=== PATIENT | male | born 2000 | race African-American/Black ===

== ENCOUNTER 2022-12-14 06:41 | Inpatient (IN) | payer MEDICAID, OTHER ==
[2022-12-14] VITALS (11 sets, daily range): BP systolic 132–204; BP diastolic 77–114
[~2022-12-14] VITALS: Ht 172.7 cm; Wt 58.1 kg
--- NOTE | 2022-12-14 06:50 | NUR ---
[id number] FROM SNF FOR HR 130-140'S AND HOT TO TOUCH. PATIENT RECENTLY HAD A TBI IN OCTOBER AND IS NON VERBAL. PTS RECTAL TEMP WAS 101.1, MD NOTIFIED. PATIENT PLACED IN BED 09 ON MONITOR AND POX. PATIENT IS CONNECTED TO O2 3L CONNECTED TO TPIECE.
--- NOTE | 2022-12-14 06:53 | NUR ---
AT BEDSIDE FOR PATIENT EVAL.
[2022-12-14] MEDS ORDERED: VANCOMYCIN 1 GM in IV D5W 250 ML IV ONE ×2 (07:00→11:00)
[2022-12-14] MEDS ORDERED: PIPERACILLIN /TAZOBACTAM 2.25 G in IV D5W 50 ML IV ONE (07:00)
[2022-12-14] MEDS ORDERED: IV NS 0.9% 1,000 ML BAG IV ONE ×2 (07:00→11:00)
--- NOTE | 2022-12-14 07:00 | NUR ---
PATIENT PLACED IN BED. CAME WITH TRACHE ATTACHED TO OXYGEN AT 2LPM, WITH GTUBE FOR MEDS AND FEEDING, WITH SUPRAPUBIC CATHETER DRAINING TO YELLOW COLORED URINE, WITH CONDOM CATH ATTACHED TO UROBAG. PT IS AOX0. ATTACHED TO MONITOR. VITALS CHECKED.
--- NOTE | 2022-12-14 07:06 | NUR ---
URINE COLLECTED SENT TO LAB
--- NOTE | 2022-12-14 07:12 | NUR ---
BLOOD AND CULTURES COLLECTED AND SENT TO LAB
--- NOTE | 2022-12-14 07:13 | NUR ---
COVID SWAB DONE AND SENT TO LAB
--- NOTE | 2022-12-14 07:13 | NUR ---
BS 98 NOTIFIED
[2022-12-14] MEDS ORDERED: ACETAMINOPHEN 650 MG/SUPP.RECT RC ONE ×2 (07:22→07:30)
--- NOTE | 2022-12-14 07:30 | NUR ---
IV CHARLI G20 INSERTED ON LEFT FA.
[2022-12-14 07:39] LABS: BILIRUBIN,URINE NEGATIVE (NEGATIVE); COLOR,URINE DARK YELLOW (YELLOW); LEUKOCYTE ESTERASE ,URINE NEGATIVE (NEGATIVE); NITRITE, URINE NEGATIVE (NEGATIVE); PH,URINE 7.5 (5.0-8.0); PROTEIN,URINE TRACE mg/dl (NEGATIVE); UGLUCOSE NEGATIVE (NEGATIVE)
[2022-12-14 07:42] LABS: BASOPHILS # (AUTO) 0.1 K/uL (0.0-0.2); BASOPHILS % (AUTO) 0.5 % (0.0-2.0); EOSINOPHILS % (AUTO) 2.2 % (0.0-6.0); HEMATOCRIT 35 % (39-51); HEMOGLOBIN 11.2 g/dL (13.5-17.5); LYMPHOCYTES # (AUTO) 1.5 K/uL (0.8-4.8); LYMPHOCYTES % (AUTO) 12.6 % (20.0-44.0); MEAN CORPUSCULAR HGB CONC 32 g/dl (31.0-36.0); MEAN CORPUSCULAR VOLUME 89 fL (80-96); MONOCYTES # (AUTO) 0.5 K/uL (0.1-1.30); NEUTROPHILS # (AUTO) 9.9 K/uL (1.8-8.9); NEUTROPHILS % (AUTO) 80.7 % (43.0-81.0); PLATELET COUNT (AUTO) 501 K/uL (150-450); RED BLOOD CELL COUNT(AUTO) 3.95 MIL/uL (4.5-6.0); WHITE BLOOD COUNT (AUTO) 12.3 K/uL (4.3-11.0)
--- NOTE | 2022-12-14 07:45 | NUR ---
IV fluids started no infiltration noted
[2022-12-14 07:46] LABS: CALCIUM, SERUM 11.3 mg/dL (8.5-10.1); CARBON DIOXIDE 30 mmol/L (21-32); CHLORIDE 99 mmol/L (98-107); CREATININE 0.8 mg/dL (0.6-1.3); GLUCOSE 116 mg/dL (74-106); SODIUM SERUM 138 mmol/L (136-145); UREA NITROGEN, BLOOD 20 mg/dL (7-18)
[2022-12-14 07:51] LABS: ALANINE AMINOTRANSFERASE 25 U/L (12-78); ALBUMIN 3.7 g/dL (3.4-5.0); ALKALINE PHOSPHATASE 303 U/L (46-116); ASPARTATE AMINOTRANSFERASE 31 U/L (15-37); BILIRUBIN,DIRECT 0.1 mg/dL (0.0-0.2); BILIRUBIN,TOTAL 0.3 mg/dL (0.2-1.0); TOTAL PROTEIN, SERUM 10.3 g/dL (6.4-8.2)
--- NOTE | 2022-12-14 08:42 | NUR ---
IV antibiotics hung
[2022-12-14] MEDS ORDERED: IV NS 0.9% 1,000 ML IV ONE (09:00)
--- NOTE | 2022-12-14 09:08 | NUR ---
MOVE SHEET SUBMITTED.
[2022-12-14] MEDS ORDERED: ONDANSETRON HCL/PF 4 MG/2 ML VIAL IVP PRN (11:00)
[2022-12-14] MEDS ORDERED: LORAZEPAM INJ 2 MG/ML VIAL IV ONE ×2 (11:00→13:00)
[2022-12-14] MEDS ORDERED: LORAZEPAM INJ 2 MG/ML VIAL ONE ×2 (11:16→12:36)
[2022-12-14 11:25] LABS: ALBUMIN 3.4 g/dL (3.4-5.0); BILIRUBIN,DIRECT 0.1 mg/dL (0.0-0.2); BILIRUBIN,TOTAL 0.4 mg/dL (0.2-1.0); TOTAL PROTEIN, SERUM 9.3 g/dL (6.4-8.2)
[2022-12-14 11:26] LABS: ABG BASE EXCESS -1.4 mmol/L; ABG OXYGEN SATURATION 98.6 % (92.0-98.5); ABG PCO2 35.7 mmHg (35.0-45.0); AaDO2 48.4 mmHg; COHb 0.3 % (0.5-1.5); MetHb 0.3 % (0.0-1.5); SITE, ABG Left Radial
--- NOTE | 2022-12-14 12:48 | NUR ---
GOT BED 112 TELE
--- NOTE | 2022-12-14 12:52 | NUR ---
Report given to Lois POLLOCK
[2022-12-14] MEDS: PIPERACILLIN /TAZOBACTAM 4.5 G in IV D5W 100 ML IV SCH ×3 (14:05→23:52)
--- NOTE | 2022-12-14 14:10 | NUR ---
MEAT BLENDER NOTE PATIENT WAS ADMITTED FROM THE ER , WITH PRIMARY DIAGNOSIS OF SEPSIS , WITH RECENT HISTORY OF TRAUMATIC BRAIN INJURY AND SUBDURAL HEMATOMA .PATIENT IS NONVERBAL , BOTH WRISTS CONTRACTED HAS IV ACCESS OF THE LEFT WRIST .UPON ADMISSION BP WAS 160 /80 , HR 150 , REPORT WAS GIVEN TO THE DR REEVES .PATIENT IS DIAPHORETIC , TEMP ON ADMISSION 98.8 . PATIENT HAS G TUBE IN PLACE WILL VERIFY WITH THE [facility] WHAT FORMULA PATIENT WAS RECEIVING FOR G TUBE FEEDING , ALSO SUPRAPUBIC CATHETER IN PLACE AND CONDOM CATHETER WELL PER ER REPORT CONDOM CATHETER WAS PLACED BECAUSE OF URINE LEAKING , BED IS AT LOWEST POSITIOM , BED SIDE RAILS ARE UP WILL CONTINUE TO MONITOR
[2022-12-14] MEDS ORDERED: CEPH500C2 GT (14:14)
[2022-12-14] MEDS ORDERED: TRAZ-182 GT (14:14)
[2022-12-14] MEDS ORDERED: PHEN64.8 GT (14:14)
[2022-12-14] MEDS ORDERED: MULT9LIQ6 GT (14:14)
[2022-12-14] MEDS ORDERED: SENN8.8S19 GT (14:14)
[2022-12-14] MEDS ORDERED: MAGN400O6 GT (14:14)
[2022-12-14] MEDS ORDERED: BROM2.5T15 GT (14:14)
[2022-12-14] MEDS ORDERED: ACET650S26 GT (14:14)
[2022-12-14] MEDS ORDERED: POLY15DR40 EACHEYE (14:14)
[2022-12-14] MEDS ORDERED: POLY17PO4 GT (14:14)
[2022-12-14] MEDS ORDERED: PANT40SU2 GT (14:14)
[2022-12-14] MEDS ORDERED: THIA100T68 GT (14:14)
[2022-12-14] MEDS ORDERED: HEPA50008 SQ (14:14)
[2022-12-14] MEDS ORDERED: CHLO473M5 MM (14:14)
[2022-12-14] MEDS ORDERED: IPRA4AER IH (14:14)
[2022-12-14] MEDS ORDERED: GABA250S2 GT (14:14)
[2022-12-14] MEDS ORDERED: PROP10TA10 GT (14:14)
[2022-12-14] MEDS ORDERED: OLAN5TAB3 GT (14:14)
[2022-12-14] MEDS ORDERED: BISA10SU11 RC (14:14)
[2022-12-14] MEDS: ENOXAPARIN SODIUM 40 MG/0.4 ML DISP.SYRIN SQ SCH (15:01)
--- NOTE | 2022-12-14 15:07 | NUR ---
ans given at er Addendum: 12/14/22 at 1507 by LEXIE HARGROVE RN NS 100 ML GIVEN AT ER
[2022-12-14] MEDS: VANCOMYCIN 1.25 GM in IV D5W 250 ML IV SCH ×2 (15:21→22:05)
--- NOTE | 2022-12-14 17:02 | NUR ---
RN NOTE PATIENT DEVELOPED LABOR HEAVY BREATHING AND BECOME DIAPHORETIC, BP WAS CHECKED MANUALY 260/110 , NT 180 CALLED RAPID RESPOND .
--- NOTE | 2022-12-14 17:05 | NUR ---
RN NOTE PATIENT DEVELOPED VERY HEAVY AND LABORED HBREATHING , O2 SAT 100 % , BP CHECKED MANUALLY 260/110 , HR 180 , TEMP 98.6 , REPORT WAS GIVEN TO THE DR REEVES , ORDER FOR ATIVAN 1 MG IV FOR AGITATION AND HYDRALAZINE 5 MG IV IF SBP MORE THAN 160 RECEIVED , ALSO DOCTOR ORDERED TO TRANSFER PATIENT TO THE ICU .ATIVAN AND HYDRALAZINE WAS ADMINISTERED IV AND PATIENT WAS TRANSFERRED TO THE ICU .
[2022-12-14] MEDS: LORAZEPAM INJ 2 MG/ML VIAL IV PRN (17:06)
[2022-12-14] MEDS: hydrALAZINE HCL IV 20 MG VIAL IV PRN ×2 (17:06→22:13)
--- NOTE | 2022-12-14 17:15 | NUR ---
DAIRY MACHINE OPERATOR FARMWORKER NOTE Patient is transferred to ICU for tachypnea and tachycardiac. distribution designer showed ST HR >160/min and RR >45/min. BP 165/102mmHg without vasopressors use, temp 99.6.
--- NOTE | 2022-12-14 17:32 | NUR ---
RT NOTE Pt presents with labored breathing, tachycardia, tachypnea, diaphoresis. SpO2 is maintained at 100% on 4L of O2. ABG not drawn at this time due to SpO2 level being ok and previous ABG result from 2 hours prior had no significant results, all values WNL. RN and I agreed it wouldn't be appropriate at this time.
--- NOTE | 2022-12-14 18:26 | NUR ---
ICU/RN PT HAS SOB ON T -TUBE.HR-150 BPM,RR-50.DR PAREDES NOTIFIED.PT PLACED ON THE VENT AC MODE.FIO2-100%. ORDERED.ABG AT 1900 ORDERED.CONTINUE MONITORING
--- NOTE | 2022-12-14 18:30 | NUR ---
PAN PULLER NOTE patient's mother is notified about the transfer to ICU. Clinical condition is updated and visiting hours is told via phone. She showed understanding.
[2022-12-14] MEDS: IV NS 0.9% 250 ML IV PRN (19:17)
[2022-12-14] MEDS: IV 1/2NS 1000 ML 1,000 ML IV SCH (19:18)
--- NOTE | 2022-12-14 19:30 | NUR ---
PT RECEIVED AWAKE, OBTUNDED. SIDE DOOR MAN SHOWS ST. ON VENT SETTINGS PRESCRIBED. O2 SAT 100 %. SUPRAPUBIC CATHETER DRAINING CLEAR YELLOW URINE. IV ACCESS ON LFA #20. INFUSING 0.45% NS AT 125 ML/HR. SAFETY MEASURES IN PLACE. WILL CONTINUE PLAN OF CARE.
[2022-12-14] MEDS: ACETAMINOPHEN 650 MG/SUPP.RECT RC PRN (19:50)
[2022-12-14 19:58] LABS: ABG BASE EXCESS -0.7 mmol/L; ABG OXYGEN SATURATION 99.7 % (92.0-98.5); ABG PCO2 29.7 mmHg (35.0-45.0); ABG PH 7.486 (7.350-7.450); ABG PO2 515.6 mmHg (75.0-100.0); AaDO2 167.7 mmHg; COHb 0.3 % (0.5-1.5); MetHb 0.4 % (0.0-1.5); SITE, ABG Left Radial
[2022-12-15] VITALS (35 sets, daily range): BP systolic 111–179; BP diastolic 52–113
[2022-12-15] MEDS: hydrALAZINE HCL IV 20 MG VIAL IV PRN ×3 (02:17→19:36)
[2022-12-15] MEDS: ACETAMINOPHEN 650 MG/SUPP.RECT RC PRN (02:17)
[2022-12-15] MEDS: LORAZEPAM INJ 2 MG/ML VIAL IV PRN ×2 (02:39→07:25)
[2022-12-15] MEDS: IV 1/2NS 1000 ML 1,000 ML IV SCH (03:38)
[2022-12-15] MEDS: PIPERACILLIN /TAZOBACTAM 4.5 G in IV D5W 100 ML IV SCH ×4 (05:00→23:50)
[2022-12-15 05:04] LABS: BASOPHILS # (AUTO) 0.1 K/uL (0.0-0.2); BASOPHILS % (AUTO) 0.8 % (0.0-2.0); EOSINOPHILS % (AUTO) 2.2 % (0.0-6.0); HEMATOCRIT 30 % (39-51); HEMOGLOBIN 9.6 g/dL (13.5-17.5); LYMPHOCYTES # (AUTO) 0.6 K/uL (0.8-4.8); MEAN CORPUSCULAR HGB CONC 33 g/dl (31.0-36.0); MEAN CORPUSCULAR VOLUME 89 fL (80-96); MONOCYTES # (AUTO) 0.5 K/uL (0.1-1.30); MONOCYTES % (AUTO) 5.4 % (2.0-12.0); NEUTROPHILS # (AUTO) 8.5 K/uL (1.8-8.9); NEUTROPHILS % (AUTO) 85.6 % (43.0-81.0); PLATELET COUNT (AUTO) 462 K/uL (150-450); RED BLOOD CELL COUNT(AUTO) 3.31 MIL/uL (4.5-6.0)
[2022-12-15 05:41] LABS: ALBUMIN 3.3 g/dL (3.4-5.0); BILIRUBIN,TOTAL 0.4 mg/dL (0.2-1.0); CALCIUM, SERUM 10.1 mg/dL (8.5-10.1); CREATININE 0.8 mg/dL (0.6-1.3); POTASSIUM 3.7 mmol/L (3.5-5.1); TOTAL PROTEIN, SERUM 8.5 g/dL (6.4-8.2)
--- NOTE | 2022-12-15 06:48 | NUR ---
PT ASLEEP, OBTUNDED. BI REPORT DEVELOPER SHOWS HR FROM 79 TO 110. ON VENT SETTINGS PRESCRIBED. O2 SAT 100 %. SUPRAPUBIC CATHETER DRAINING CLEAR YELLOW URINE. IV ACCESS ON LFA #20. INFUSING 0.45% NS AT 125 ML/HR. DUE MEDS AND PRN MEDS GIVEN NEEDED AND ORDERED. SAFETY MEASURES MAINTAINED. WILL ENDORSE TO NEXT NURSE ON DUTY FOR CONTINUITY OF CARE.
--- NOTE | 2022-12-15 07:00 | NUR ---
HEAD OF BUSINESS DEVELOPMENT NOTE Patient's resting in bed. GCS E4VTM2. teletypesetter monitor showed SR HR 95/min. SBP>90mmHg without vasopressors use. On ventilator, AC 12/min, TV 450mL. PEEP 5. SpO2 100% with FiO2 0.4 through Shiley #6. Left FA IV site is dry and intact, with NS running at 125mL/hr. PEG is in-situ, aspirated 20mL coffee ground. Suprapubic paul is in-situ, collecting blood-stained fluid. Suction and repositioning is done. Will continue monitoring.
[2022-12-15] MEDS: VANCOMYCIN 1.25 GM in IV D5W 250 ML IV SCH (07:26)
--- NOTE | 2022-12-15 07:40 | NUR ---
UTILITIES EQUIPMENT REPAIRER NOTE Patient became tachycardiac and tachypnic despite not having fever. HR>170/min, RR>45/min. BP >200/100mmHg. Administered IV ativan and IV hydralazine. Informed Dr. Dawkins, who ordered CXR, ABG and start propofol infusion. ABG was taken by RT Guidry, who showed a normal ABG. Will continue monitoring.
[2022-12-15] MEDS: PROPOFOL 100 ML IV PRN ×4 (07:45→22:39)
[2022-12-15] MEDS: PANTOPRAZOLE 40 MG VIAL IV SCH (08:56)
[2022-12-15] MEDS: ENOXAPARIN SODIUM 40 MG/0.4 ML DISP.SYRIN SQ SCH (08:56)
[2022-12-15] MEDS ORDERED: JEVITY 1.2 CAL 1,000 ML BOTTLE GT PRN (11:00)
[2022-12-15] MEDS: IV 1/2NS 1000 ML 1,000 ML IV PRN ×2 (11:48→19:48)
[2022-12-15 12:03] LABS: ABG BASE EXCESS -1.5 mmol/L; ABG OXYGEN SATURATION 97.9 % (92.0-98.5); ABG PCO2 37.6 mmHg (35.0-45.0); ABG PH 7.403 (7.350-7.450); ABG PO2 106.4 mmHg (75.0-100.0); AaDO2 135.6 mmHg; COHb 0.2 % (0.5-1.5); MetHb 0.3 % (0.0-1.5); O2Hb 97.4 % (94.0-97.0); SITE, ABG Left Radial; VENT MODE, BG AC 12 450 40% +5
[2022-12-15] MEDS ORDERED: ACETAMINOPHEN 650 MG/20.3 ML UDC NG PRN (16:00)
[2022-12-15] MEDS: ACETAMINOPHEN 650 MG/20.3 ML UDC NG SCH ×2 (18:00→23:50)
--- NOTE | 2022-12-15 20:26 | NUR ---
SKULL GRINDER. INITIAL ASSESSMENT. RECEIVED THE PT REST IN BED. TRACH TO VENT CONNECTED. PT IS RECEIVING PROPOFOL 50MCG/KG/MIN, HOB ELEVATED. GT CLAMPED. AGILE SCRUM MASTER SHOWING S TACH IV LT UPPER ARM MID LINE. IVF 1/2NS 125 ML/H. FC PATENT. HEMATURIA NOTED. HOB ELEVATED. WILL CONTINUE TO MONITOR VITALS.
[2022-12-16] VITALS (41 sets, daily range): BP systolic 101–171; BP diastolic 54–114
[2022-12-16] MEDS: LORAZEPAM INJ 2 MG/ML VIAL IV PRN ×6 (00:23→18:47)
[2022-12-16] MEDS: PROPOFOL 100 ML IV PRN ×4 (01:59→18:08)
[2022-12-16] MEDS: IV 1/2NS 1000 ML 1,000 ML IV PRN ×2 (02:00→11:58)
[2022-12-16 04:52] LABS: CALCIUM, SERUM 8.3 mg/dL (8.5-10.1); CREATININE 0.8 mg/dL (0.6-1.3); POTASSIUM 3.1 mmol/L (3.5-5.1)
[2022-12-16] MEDS: PIPERACILLIN /TAZOBACTAM 4.5 G in IV D5W 100 ML IV SCH (05:05)
--- NOTE | 2022-12-16 05:18 | NUR ---
SECURITY PATROL DRIVER. PT HAVING SEIZURE . ACTIVAN GIVEN PER ORDER. WILL CONTINUE TO MONITOR. HOB ELEVATED. NPO. GT CLAMPED. SUPRA PUBIC CATH INTACT. HEMATURIA PRESENT. TURN AND REPOSITION Q2H. WILL CONTINUE TO MONITOR VITALS
[2022-12-16] MEDS: ACETAMINOPHEN 650 MG/20.3 ML UDC NG SCH ×3 (05:54→18:10)
[2022-12-16] MEDS ORDERED: VANCOMYCIN 1 GM in IV D5W 250 ML IV SCH (07:00)
--- NOTE | 2022-12-16 07:02 | NUR ---
WOUND CARE CONSULT: PT PRESENTS WITH IMMOBILITY, MULTIPLE SCARS INCLUDING ANKLES, HEAD, FACE, UPPER EXTREMITIES AND SUTURES TO SCALP, ALL PRESENT ON ADMISSION. DR DUGAN CALLED FOR SURGICAL CONSULT. DISCUSSED SKIN PROTECTION WITH NURSING STAFF. MD IN AGREEMENT WITH PLAN OF CARE.
[2022-12-16] MEDS ORDERED: Z GUARD REMEDY 4 OZ OINT TP PRN (07:30)
--- NOTE | 2022-12-16 07:53 | NUR ---
ELECTRIC REPAIR SUPERVISOR NOTE Patient's resting in bed. GCS E4VTM5. site monitor showed ST HR 107/min. SBP>90mmHg without vasopressors use. On ventilator, AC 12/min, TV 450mL. PEEP 5. SpO2 100% with FiO2 0.4 through Shiley #6. Left FA IV site is dry and intact, with NS running at 125mL/hr. PEG is in-situ, aspirated 50mL clear fluid. Suprapubic paul is in-situ, collecting blood-stained fluid. Suction and repositioning is done. Will continue monitoring.
[2022-12-16] MEDS: IV NS 0.9% 250 ML IV PRN (08:02)
--- NOTE | 2022-12-16 08:38 | NUR ---
TINNER HELPER NOTE Clinical condition updated with Dr. Dawkins(broker associate) and Dr. Rosen(hospitalist). They ordered the followings: CBC (to evaluate hematuria) Dupplex doppler for bilateral LL and right UA to rule out DVT EEG (to detect seizure activity) Resumed home meds of phenobarbital and gabapentin. Would follow the orders.
[2022-12-16 08:47] LABS: BASOPHILS % (AUTO) 0.6 % (0.0-2.0); EOSINOPHILS % (AUTO) 4.1 % (0.0-6.0); HEMATOCRIT 25 % (39-51); HEMOGLOBIN 8.4 g/dL (13.5-17.5); LYMPHOCYTES % (AUTO) 12.7 % (20.0-44.0); MEAN CORPUSCULAR HGB CONC 33 g/dl (31.0-36.0); MEAN CORPUSCULAR VOLUME 91 fL (80-96); MONOCYTES # (AUTO) 0.5 K/uL (0.1-1.30); MONOCYTES % (AUTO) 6.8 % (2.0-12.0); NEUTROPHILS # (AUTO) 5.7 K/uL (1.8-8.9); NEUTROPHILS % (AUTO) 75.8 % (43.0-81.0); PLATELET COUNT (AUTO) 396 K/uL (150-450); RED BLOOD CELL COUNT(AUTO) 2.75 MIL/uL (4.5-6.0); WHITE BLOOD COUNT (AUTO) 7.6 K/uL (4.3-11.0)
[2022-12-16] MEDS: PANTOPRAZOLE 40 MG VIAL IV SCH (09:03)
[2022-12-16] MEDS: JEVITY 1.2 CAL 1,000 ML BOTTLE GT PRN (09:04)
[2022-12-16] MEDS: Z GUARD REMEDY 4 OZ OINT TP SCH (09:04)
[2022-12-16] MEDS: hydrALAZINE HCL IV 20 MG VIAL IV PRN ×2 (09:18→15:33)
[2022-12-16] MEDS ORDERED: POTASSIUM CHLORIDE 20 MEQ POWDER PACKET GT ONE (10:00)
[2022-12-16] MEDS: GABAPENTIN 300 MG CAPSULE GT SCH ×3 (10:28→21:15)
[2022-12-16] MEDS: PIPERACILLIN /TAZOBACTAM 3.375 G in IV D5W 100 ML IV SCH ×2 (11:35→21:14)
[2022-12-16] MEDS ORDERED: GABAPENTIN 300 MG CAPSULE GT SCH ×2 (13:00)
--- NOTE | 2022-12-16 19:30 | NUR ---
Verbal endorsement received from day nurse. Pt. in bed supine. Neurologically obtunded. No purposeful response to tactile stimulation. Delayed corneal reflexes. park landscape architect intact depicting ST at 140's. Endorsed that this was the clinical presentation. Pt. maintained currently on propofol 25mcgs. and Ativan 1 mg q1 hr prn for anxiety, increased heart rate and BP reading. Pt. is extremely diaphoretic. Pt. continues on Jevity 1.2 at 20 cc/hr. appears to be tolerating. Suprapublic tube intact draining clear pinkish brown urine. See nursing flow sheet for complete assessment. Pt. monitored for seizure activity, pain, hyperdynamic episodes with HR and BP, RR. and overall change in condition.
[2022-12-16] MEDS ORDERED: PHENOBARBITAL 20 MG/5 ML UDC GT SCH (22:00)
[2022-12-16] MEDS ORDERED: PHENOBARBITAL 60 MG/15 ML UDC GT SCH (22:00)
[2022-12-17] VITALS (30 sets, daily range): BP systolic 117–197; BP diastolic 59–147
[2022-12-17] MEDS: ACETAMINOPHEN 650 MG/20.3 ML UDC NG SCH ×4 (00:03→18:34)
[2022-12-17] MEDS: LORAZEPAM INJ 2 MG/ML VIAL IV PRN ×4 (00:03→09:05)
--- NOTE | 2022-12-17 00:03 | NUR ---
Pt. given Ativan for elevated HR, RR, and BP. as per orders.Dipravan gtts. at 35 mcgs. Full bedbath given .First Step air matress applied. Flexiseal placed for loose diarrhea. Pt. tolerated well. Pt. midline central line dislodged and catheter removed intact. Minimal bleeding at site drsg applied till hemostatis. Propofol placed to right forearm IV # 20 intact.
[2022-12-17] MEDS: PROPOFOL 100 ML IV PRN ×4 (00:57→18:34)
[2022-12-17] MEDS: hydrALAZINE HCL IV 20 MG VIAL IV PRN ×2 (03:51→13:13)
[2022-12-17] MEDS: PIPERACILLIN /TAZOBACTAM 3.375 G in IV D5W 100 ML IV SCH ×3 (04:41→20:11)
[2022-12-17] MEDS: GABAPENTIN 300 MG CAPSULE GT SCH ×3 (04:46→20:11)
[2022-12-17 06:19] LABS: CALCIUM, SERUM 9.5 mg/dL (8.5-10.1); CREATININE 0.7 mg/dL (0.6-1.3); POTASSIUM 3.9 mmol/L (3.5-5.1)
--- NOTE | 2022-12-17 07:30 | NUR ---
Pt. given Ativan again at 0600 for increased HR and resp. Pt. becomes agitated when repositoning and procedures are taking place. Ativan is not rapidly efffective. Hydralazine 10 mg given prn as ordered x1 and was effective approximately 45min after administration. Pt.labs were drawn after 3 attempts from phlebotomists. Pt. arms are contracted and he also resists. All attempts made to manage pt. hypertensive and tachypnic episodes, all attempts made to protect pt. from skin breakdown and keep injury free( Flexiseal inserted as endorsed). Endorsed to oncoming day nurse injury free. VS at this time are stable. Pt. is resting and appears comfortable. Propofol remains at 35 mcgs. with last Ativan given at 0604. 3 SR up, extra equipment removed. Bed in low position with brakes locked.
--- NOTE | 2022-12-17 08:00 | NUR ---
RN NOTES RECEIVED PATIENT TRACHEA/VENT DEPENDENT FIO2-40, PEEP IS 5. NO ACUTE RESPIRATORY DISTRESS, PATIENT HR-108, SENSITIVE WHEN TOUCHING, CONTRACTED UPPER EXTREMITIES, EDEMA ON LEFT SIDE, AN ON HEAD CRANIOTOMY PREVIOUS SURGERY. PATIENT HAS SUPRAPUBIC CATHETER INTACT DRAINING RADISH COLOR URINE. GTF JEVITY 1.2 ML/HR RESIDUAL IS 100 ML. RECTAL TUBE INTACT ASSIST TURN AND REPOSTION Q 2 HR, KEEP HOB ELEVATED. MEDICATION ADMINISTERED VIA GT,WILL FOLLOW UP.
--- NOTE | 2022-12-17 08:30 | NUR ---
rn notes Get verbal order via Dr Dawkins to titrated sedation at this time for checking mental status. order taken and carried out.
[2022-12-17] MEDS: Z GUARD REMEDY 4 OZ OINT TP SCH (09:03)
[2022-12-17] MEDS: PANTOPRAZOLE 40 MG/PACK PACK GT SCH (09:03)
--- NOTE | 2022-12-17 09:05 | NUR ---
rn notes administered ativan 1 mg /ml iv push for anxiety, hr-107, bp 130/63, r- 17.
[2022-12-17] MEDS ORDERED: CLONIDINE HCL 0.1MG/24H PTWK 1 EA PATCH TD SCH (11:00)
[2022-12-17] MEDS: PROPRANOLOL HCL 40 MG TABLET GT SCH ×3 (13:12→20:11)
--- NOTE | 2022-12-17 13:13 | NUR ---
RN NOTES ADMINISTERED APRESOLINE 10 MG/ML IV PUSH FOR VICTORIA 188/93, P-130.
[2022-12-17] MEDS: IV 1/2NS 1000 ML 1,000 ML IV PRN (14:08)
[2022-12-17] MEDS: IV NS 0.9% 250 ML IV PRN (14:08)
[2022-12-17] MEDS: MORPHINE SULFATE SOLN CONCENTRATED 20 MG/ML PO SCH ×2 (14:22→18:34)
--- NOTE | 2022-12-17 15:52 | NUR ---
rn notes patient having EEG at this time.
[2022-12-17] MEDS: PHENOBARBITAL 60 MG/15 ML UDC GT SCH (16:50)
[2022-12-17] MEDS: VANCOMYCIN 1 GM in IV D5W 250ml IV SCH (16:50)
[2022-12-17] MEDS: JEVITY 1.2 CAL 1,000 ML BOTTLE GT PRN (17:52)
--- NOTE | 2022-12-17 18:30 | NUR ---
RN NOTES PM ACRE DONE, NO ACUTE RESPIRATORY DISTRESS, INFUSING DIPRIVAN 20MCG/KG/MIN,ON KURTIS MIDLINE INTACT. PATIENT TOLERATED FEEDING WELL JEVITY 1.2 40ML/HR. KEEP HOB ELEVATED. URINE OUTPUT WAS 960 ML, RECTAL TUBE INTACT. ASSIST TURN AND REPOSTION Q 2 HR. ENDORSED ONCOMING NURSE SEAN.
[2022-12-18] VITALS (26 sets, daily range): BP systolic 98–145; BP diastolic 57–100
[2022-12-18] MEDS: MORPHINE SULFATE SOLN CONCENTRATED 20 MG/ML PO SCH ×4 (00:19→17:08)
[2022-12-18] MEDS: ACETAMINOPHEN 650 MG/20.3 ML UDC NG SCH ×4 (00:19→17:08)
[2022-12-18] MEDS: VANCOMYCIN 1 GM in IV D5W 250ml IV SCH ×3 (00:19→15:37)
[2022-12-18] MEDS: IV 1/2NS 1000 ML 1,000 ML IV PRN ×2 (02:19→14:39)
[2022-12-18] MEDS: PROPOFOL 100 ML IV PRN (02:20)
[2022-12-18] MEDS: PIPERACILLIN /TAZOBACTAM 3.375 G in IV D5W 100 ML IV SCH (04:58)
[2022-12-18] MEDS: PROPRANOLOL HCL 40 MG TABLET GT SCH ×3 (05:07→21:03)
[2022-12-18] MEDS: GABAPENTIN 300 MG CAPSULE GT SCH ×3 (05:07→21:03)
[2022-12-18 05:31] LABS: BASOPHILS % (AUTO) 0.5 % (0.0-2.0); EOSINOPHILS % (AUTO) 5.3 % (0.0-6.0); HEMATOCRIT 24 % (39-51); HEMOGLOBIN 7.9 g/dL (13.5-17.5); LYMPHOCYTES # (AUTO) 1.2 K/uL (0.8-4.8); LYMPHOCYTES % (AUTO) 22.1 % (20.0-44.0); MEAN CORPUSCULAR HGB CONC 33 g/dl (31.0-36.0); MEAN CORPUSCULAR VOLUME 90 fL (80-96); MONOCYTES # (AUTO) 0.5 K/uL (0.1-1.30); NEUTROPHILS # (AUTO) 3.6 K/uL (1.8-8.9); NEUTROPHILS % (AUTO) 64.1 % (43.0-81.0); PLATELET COUNT (AUTO) 401 K/uL (150-450); RED BLOOD CELL COUNT(AUTO) 2.68 MIL/uL (4.5-6.0); WHITE BLOOD COUNT (AUTO) 5.6 K/uL (4.3-11.0)
[2022-12-18 06:20] LABS: CALCIUM, SERUM 8.5 mg/dL (8.5-10.1); CREATININE 0.5 mg/dL (0.6-1.3); MAGNESIUM 1.5 mg/dL (1.8-2.4); PHOSPHORUS 5.3 mg/dL (2.5-4.9); POTASSIUM 3.2 mmol/L (3.5-5.1)
--- NOTE | 2022-12-18 07:20 | NUR ---
CU RN NOTE Patient's resting in bed. GCS E4VTM5. youth nutritional monitor showed SR HR 74/min. BP 121/77 mmHg without vasopressors use. On ventilator, AC 12/min, TV 450mL. PEEP 5. SpO2 100% with FiO2 0.4 through Shiley #6, just decreased FiO2 to 0.3. Sedated by propofol at 10mcg/kg/min, will wean him off the med today. Left UA midline is dry and intact, with 1/2 NS running at 80 mL/hr. PEG is in-situ, aspirated 5mL undigested milk. Suprapubic paul is in-situ, collecting clear fluid. Suction and repositioning is done. Will continue monitoring.
[2022-12-18] MEDS: Z GUARD REMEDY 4 OZ OINT TP SCH (08:07)
[2022-12-18] MEDS: PANTOPRAZOLE 40 MG/PACK PACK GT SCH (08:07)
[2022-12-18] MEDS: PHENOBARBITAL 60 MG/15 ML UDC GT SCH ×2 (08:07→17:08)
[2022-12-18] MEDS: Magnesium 1GM/D5W 100ML PREMIX 100 ML IV SCH ×2 (11:52→13:35)
[2022-12-18] MEDS: POTASSIUM CHLORIDE 20 MEQ POWDER PACKET GT SCH ×2 (12:24→14:01)
[2022-12-18] MEDS: IV NS 0.9% 250 ML IV PRN (17:17)
[2022-12-18] MEDS: JEVITY 1.2 CAL 1,000 ML BOTTLE GT PRN (18:57)
[2022-12-19] VITALS (24 sets, daily range): BP systolic 102–134; BP diastolic 65–103
[2022-12-19] MEDS: MORPHINE SULFATE SOLN CONCENTRATED 20 MG/ML PO SCH ×4 (00:31→17:05)
[2022-12-19] MEDS: ACETAMINOPHEN 650 MG/20.3 ML UDC NG SCH ×4 (00:31→17:05)
[2022-12-19] MEDS: VANCOMYCIN 1 GM in IV D5W 250ml IV SCH ×3 (00:32→16:01)
[2022-12-19] MEDS: IV 1/2NS 1000 ML 1,000 ML IV PRN ×2 (02:39→14:26)
[2022-12-19] MEDS: GABAPENTIN 300 MG CAPSULE GT SCH ×3 (05:06→21:10)
[2022-12-19] MEDS: PROPRANOLOL HCL 40 MG TABLET GT SCH ×3 (05:06→21:11)
[2022-12-19 05:30] LABS: BASOPHILS % (AUTO) 0.6 % (0.0-2.0); EOSINOPHILS % (AUTO) 6.1 % (0.0-6.0); HEMATOCRIT 24 % (39-51); HEMOGLOBIN 7.7 g/dL (13.5-17.5); LYMPHOCYTES # (AUTO) 1.3 K/uL (0.8-4.8); LYMPHOCYTES % (AUTO) 26.2 % (20.0-44.0); MEAN CORPUSCULAR HGB CONC 32 g/dl (31.0-36.0); MEAN CORPUSCULAR VOLUME 91 fL (80-96); MONOCYTES # (AUTO) 0.4 K/uL (0.1-1.30); MONOCYTES % (AUTO) 8.6 % (2.0-12.0); NEUTROPHILS # (AUTO) 2.9 K/uL (1.8-8.9); NEUTROPHILS % (AUTO) 58.5 % (43.0-81.0); PLATELET COUNT (AUTO) 431 K/uL (150-450); RED BLOOD CELL COUNT(AUTO) 2.63 MIL/uL (4.5-6.0)
[2022-12-19 05:53] LABS: CALCIUM, SERUM 9.2 mg/dL (8.5-10.1); CREATININE 0.5 mg/dL (0.6-1.3); MAGNESIUM 1.5 mg/dL (1.8-2.4); PHOSPHORUS 4.6 mg/dL (2.5-4.9); POTASSIUM 3.7 mmol/L (3.5-5.1)
--- NOTE | 2022-12-19 07:19 | NUR ---
ICU/RN PT RECEIVED IN BED, OBTUNDED. PT WITH TRACH AND MECHANICAL VENTILATOR FIO2 40% O2 SAT 100% ON BEDSIDE MONITOR. SB ON MONITOR HR 57 AT THIS TIME. FLEXISEAL IN PLACE. SUPRAPUBIC CATHETER IN PLACE. GTUBE IN PLACE RUNNING JEVITY AT 40MLS/HR. LEFT UA MIDLINE IN PLACE RUNNING 1/2NS AT 80 MLS/HR. BED LOCKED AND IN LOWEST POSITION, CALL LIGHT WITHIN REACH, 3 SIDE RAILS UP.
[2022-12-19] MEDS: PANTOPRAZOLE 40 MG/PACK PACK GT SCH (08:02)
[2022-12-19] MEDS: PHENOBARBITAL 60 MG/15 ML UDC GT SCH ×2 (08:02→18:07)
[2022-12-19] MEDS: Z GUARD REMEDY 4 OZ OINT TP SCH (08:02)
--- NOTE | 2022-12-19 09:35 | NUR ---
ICU/RN PT PLACED ON COOL AEROSOL 5L 28% O2 SAT 100%
[2022-12-19] MEDS: Magnesium 1GM/D5W 100ML PREMIX 100 ML IV SCH ×2 (10:04→11:10)
[2022-12-19 13:17] LABS: ABG OXYGEN SATURATION 98.5 % (92.0-98.5); ABG PH 7.438 (7.350-7.450); ABG PO2 145.4 mmHg (75.0-100.0); AaDO2 9.4 mmHg; COHb 0.3 % (0.5-1.5); MetHb 0.1 % (0.0-1.5); O2Hb 98.1 % (94.0-97.0); SITE, ABG Left Radial
[2022-12-19] MEDS: IV NS 0.9% 250 ML IV PRN (14:26)
--- NOTE | 2022-12-19 16:32 | NUR ---
ICU/RN NO RESIDUAL NOTED. TUBE FEEDING INCREASED TO 50 MLS/HR PER ORDER.
[2022-12-19] MEDS: JEVITY 1.2 CAL 1,000 ML BOTTLE GT PRN (18:03)
[2022-12-20] VITALS (19 sets, daily range): BP systolic 106–139; BP diastolic 63–111
[2022-12-20] MEDS: ACETAMINOPHEN 650 MG/20.3 ML UDC NG SCH ×3 (00:33→12:06)
[2022-12-20] MEDS: MORPHINE SULFATE SOLN CONCENTRATED 20 MG/ML PO SCH ×3 (00:33→12:06)
[2022-12-20] MEDS: VANCOMYCIN 1 GM in IV D5W 250ml IV SCH ×2 (00:33→08:19)
[2022-12-20] MEDS: IV 1/2NS 1000 ML 1,000 ML IV PRN ×2 (02:27→16:00)
[2022-12-20 04:40] LABS: BASOPHILS % (AUTO) 0.7 % (0.0-2.0); EOSINOPHILS % (AUTO) 5.1 % (0.0-6.0); HEMATOCRIT 27 % (39-51); HEMOGLOBIN 8.6 g/dL (13.5-17.5); LYMPHOCYTES # (AUTO) 1.5 K/uL (0.8-4.8); LYMPHOCYTES % (AUTO) 25.4 % (20.0-44.0); MEAN CORPUSCULAR HGB CONC 32 g/dl (31.0-36.0); MEAN CORPUSCULAR VOLUME 90 fL (80-96); MONOCYTES # (AUTO) 0.4 K/uL (0.1-1.30); MONOCYTES % (AUTO) 7.2 % (2.0-12.0); NEUTROPHILS # (AUTO) 3.5 K/uL (1.8-8.9); NEUTROPHILS % (AUTO) 61.6 % (43.0-81.0); PLATELET COUNT (AUTO) 507 K/uL (150-450); RED BLOOD CELL COUNT(AUTO) 2.97 MIL/uL (4.5-6.0); WHITE BLOOD COUNT (AUTO) 5.7 K/uL (4.3-11.0)
[2022-12-20 04:54] LABS: CALCIUM, SERUM 9.2 mg/dL (8.5-10.1); CREATININE 0.5 mg/dL (0.6-1.3); MAGNESIUM 1.5 mg/dL (1.8-2.4); PHOSPHORUS 4.6 mg/dL (2.5-4.9); POTASSIUM 4.1 mmol/L (3.5-5.1)
[2022-12-20] MEDS: PROPRANOLOL HCL 40 MG TABLET GT SCH ×3 (05:20→20:23)
[2022-12-20] MEDS: GABAPENTIN 300 MG CAPSULE GT SCH ×3 (05:20→20:23)
--- NOTE | 2022-12-20 07:05 | NUR ---
RN NOTES RECEIVED PT ON BED, OBTUNDED. DOES NOT RESPONDS TO PAINFUL STIMULI , PT WITH TRACH AND ON COOL AEROSOL, O2 SAT WNL, ON TELE SR , HR IN 60'S , FLEXISEAL IN PLACE. SUPRAPUBIC CATHETER IN PLACE. GTUBE IN PLACE RUNNING JEVITY AT 40MLS/HR. LEFT UA MIDLINE IN PLACE RUNNING 1/2NS AT 80 MLS/HR. BED LOCKED AND IN LOWEST POSITION, CALL LIGHT WITHIN EASY REACH, SIDE RAILS UP x3, CONTINUE TO MONITOR.
[2022-12-20] MEDS: PANTOPRAZOLE 40 MG/PACK PACK GT SCH (08:19)
[2022-12-20] MEDS: Z GUARD REMEDY 4 OZ OINT TP SCH (08:20)
[2022-12-20] MEDS: PHENOBARBITAL 60 MG/15 ML UDC GT SCH ×2 (08:20→16:00)
[2022-12-20] MEDS: Magnesium 1GM/D5W 100ML PREMIX 100 ML IV SCH ×2 (11:32→12:41)
--- NOTE | 2022-12-20 14:34 | NUR ---
RECEIVED PATIENT FROM ICU VIA PITO AYALA RN GAVE BEDSIDE REPORT, RECEIVED PT ON BED, OBTUNDED. PT WITH TRACH AND ON COOL AEROSOL, O2 SAT WNL, ON TELE SR , HR IN 60'S , FLEXISEAL IN PLACE. SUPRAPUBIC CATHETER IN PLACE NOTED WITH CLEAR YELLOW URINE OUTPUT. GTUBE IN PLACE PATENT AND INTACT. LEFT UA MIDLINE IN PLACE RUNNING, PATENT AND INTACT FLUSHES WELL. BED LOCKED AND IN LOWEST POSITION, CALL LIGHT WITHIN EASY REACH, SIDE RAILS UP x3, CONNECTED ON TELE MONITOR PLAN OF CARE CONTINUE.
--- NOTE | 2022-12-20 14:35 | NUR ---
RN NOTES PT TRANSFERRED TO ROOM 104 TELE STATUS VIA ACLS PROTOCAL IN STABLE CONDITION, REPORT GIVEN TO KELLI MITCHELL RN FOR CONTINUITY OF CARE .
[2022-12-20] MEDS: ACETAMINOPHEN 650 MG/20.3 ML UDC GT SCH ×2 (15:41→20:23)
--- NOTE | 2022-12-20 15:47 | NUR ---
VS T 99.0 P 77 RR 22 BP 139/94 02 SAT 100%.
[2022-12-20] MEDS: JEVITY 1.2 CAL 1,000 ML BOTTLE GT PRN (17:37)
--- NOTE | 2022-12-20 18:25 | NUR ---
INSURANCE SALES SPECIALIST CLOSING NOTES PT IN BED AWAKE, OBTUNDED. PT WITH TRACH AND ON COOL AEROSOL, O2 SAT WNL, ON TELE SR , HR IN 60'S , FLEXISEAL IN PLACE. SUPRAPUBIC CATHETER IN PLACE NOTED WITH CLEAR YELLOW URINE OUTPUT. GTUBE IN PLACE PATENT AND INTACT, WITH GT FEEDING RUNNING ORDERED, NO RESIDUAL NOTED, TOLERATING WELL. LEFT UA MIDLINE IN PLACE WITH IV FLUID RUNNING ORDERED, PATENT AND INTACT FLUSHES WELL. BED LOCKED AND IN LOWEST POSITION, CALL LIGHT WITHIN EASY REACH, SIDE RAILS UP x3, WILL ENDORSE TO NIGHT NURSE FOR SEAN.
[2022-12-20] MEDS: MORPHINE SULFATE SOLN CONCENTRATED 20 MG/ML GT SCH (18:30)
--- NOTE | 2022-12-20 19:05 | NUR ---
RN OPENING NOTES RECEIVED PATIENT ON BED, OBTUNDED, OPEN EYES. ON COOL AEROSOL @ 5LPM, FIO2- 28% SATING AT 100%. NO SOB NOTED. AFEBRILE, NO S/S OF DISTRESS NOTED. NOTED WITH KURTIS MIDLINE, FLUSHED WITH NS, NO S/S OF INFILTRATION NOTED, RUNNING WITH 1/2 NS @ 80 ML/HR. G-TUBE PATENT INTACT, VERIFIED PLACEMENT BY AUSCULTATION, NO RESIDUAL NOTED UPON ASPIRATION, WITH JEVITY 1.2 @ 50 ML/HR. HEAD OF BED KEPT ELEVATED. SUPRA PUBIC CATHETER INTACT DRAINING WITH CLEAR YELLOW URINE VIA GRAVITY. FLEXISEAL INTACT DRAINING WITH BROWNISH COLORED STOOL VIA GRAVITY. ALL SAFETY PRECAUTION PROVIDED. BED IN LOWEST POSITION, LOCKED. CALL LIGHT WITH IN REACH.
[2022-12-21] VITALS: BP 120/91
[2022-12-21] MEDS: MORPHINE SULFATE SOLN CONCENTRATED 20 MG/ML GT SCH ×4 (00:16→18:05)
[2022-12-21 04:00] VITALS: BP 117/72
[2022-12-21] MEDS: ACETAMINOPHEN 650 MG/20.3 ML UDC GT SCH ×4 (04:03→21:37)
[2022-12-21] MEDS: IV 1/2NS 1000 ML 1,000 ML IV PRN ×2 (05:37→18:18)
[2022-12-21] MEDS: GABAPENTIN 300 MG CAPSULE GT SCH ×3 (05:48→21:37)
[2022-12-21] MEDS: PROPRANOLOL HCL 40 MG TABLET GT SCH ×3 (05:49→21:38)
[2022-12-21 07:00] LABS: BASOPHILS % (AUTO) 0.8 % (0.0-2.0); EOSINOPHILS % (AUTO) 4.9 % (0.0-6.0); HEMATOCRIT 29 % (39-51); HEMOGLOBIN 9.5 g/dL (13.5-17.5); LYMPHOCYTES # (AUTO) 1.3 K/uL (0.8-4.8); LYMPHOCYTES % (AUTO) 22.1 % (20.0-44.0); MEAN CORPUSCULAR HGB CONC 33 g/dl (31.0-36.0); MEAN CORPUSCULAR VOLUME 90 fL (80-96); MONOCYTES # (AUTO) 0.4 K/uL (0.1-1.30); MONOCYTES % (AUTO) 7.3 % (2.0-12.0); NEUTROPHILS # (AUTO) 3.8 K/uL (1.8-8.9); NEUTROPHILS % (AUTO) 64.9 % (43.0-81.0); PLATELET COUNT (AUTO) 540 K/uL (150-450); RED BLOOD CELL COUNT(AUTO) 3.25 MIL/uL (4.5-6.0); WHITE BLOOD COUNT (AUTO) 5.9 K/uL (4.3-11.0)
[2022-12-21 07:04] LABS: CALCIUM, SERUM 9.6 mg/dL (8.5-10.1); CREATININE 0.6 mg/dL (0.6-1.3); MAGNESIUM 1.7 mg/dL (1.8-2.4); POTASSIUM 4.5 mmol/L (3.5-5.1)
--- NOTE | 2022-12-21 07:38 | NUR ---
MD PHYSICIAN DERMATOLOGIST NOTES RECEIVED PATIENT ON BED, OBTUNDED, OPEN EYES. ON COOL AEROSOL @ 5LPM, FIO2- 28% NO SOB NOTED AT THIS TIME . NO S/S OF DISTRESS NOTED. NOTED WITH KURTIS MIDLINE, FLUSHED WITH NS, NO S/S OF INFILTRATION NOTED, RUNNING WITH 1/2 NS @ 80 ML/HR. G-TUBE PATENT INTACT NOTED RESIDUAL 60 ML AT THIS TIME ,KEEP HOB ELEVATED AT ALL TIME , VERIFIED PLACEMENT BY AUSCULTATION, WITH JEVITY 1.2 @ 50 ML/HR. SUPRA PUBIC CATHETER INTACT DRAINING WITH CLEAR YELLOW URINE VIA GRAVITY. FLEXISEAL INTACT DRAINING WITH BROWNISH COLORED STOOL VIA GRAVITY. ALL SAFETY MEASURE IMPLEMENTED ON TELE MONITOR SB HR 57 BED IN LOWEST AND LOCKED POSITION , WILL MONITOR CLOSELY
[2022-12-21 08:00] VITALS: BP 112/65
[2022-12-21] MEDS: PANTOPRAZOLE 40 MG/PACK PACK GT SCH (08:35)
[2022-12-21] MEDS: PHENOBARBITAL 60 MG/15 ML UDC GT SCH ×2 (08:35→17:03)
[2022-12-21] MEDS: Z GUARD REMEDY 4 OZ OINT TP SCH (08:36)
[2022-12-21] MEDS: Magnesium 1GM/D5W 100ML PREMIX 100 ML IV SCH ×2 (10:22→11:23)
--- NOTE | 2022-12-21 10:27 | NUR ---
teletypesetter note seen by junior Hernandez rn dnp updated patient condition ,aware that gastric residual 60 ml ok to cont g tube feeding , also aware that hr 57 ,no fever at this time month care done m trach and oral suction done
--- NOTE | 2022-12-21 11:45 | NUR ---
STEFFI POLLOCK NOTE TRACH CARE SITE DONE ,SUCTION DONE NEW DRESSING AT TRACH SITE APPLIED ,TURN REPOSITION DONE ,KEEP CLEAN DRY Addendum: 12/21/22 at 1317 by KARYNA CHACON RN PER DIETARY OK TO CHANGE G TUBE FEEDING AT 55 ML PER HOUR WILL F\U
[2022-12-21 12:00] VITALS: BP 118/71
--- NOTE | 2022-12-21 13:57 | NUR ---
telephone clerk telegraph office note inner canula of trach changed ,trach suction done ,mouth care done ,keep clean dry, all needs attended family at bedside
--- NOTE | 2022-12-21 15:00 | NUR ---
DOCTOR CHIROPRACTIC NOTE ROUNDS MADE, TURN REPOSITION , TRACH SUCTION DONE, ALL NEEDS ATTENDED WILL MONITOR
[2022-12-21 16:00] VITALS: BP 136/92
[2022-12-21] MEDS: JEVITY 1.2 CAL 1,000 ML BOTTLE GT PRN (18:13)
[2022-12-21] MEDS: IV NS 0.9% 250 ML IV PRN (18:22)
--- NOTE | 2022-12-21 18:26 | NUR ---
JEWELRY ESTIMATOR NOTE PATIENT IN BED WITH TRACH TO VENT SETTING ORDERED ,WITH T PIECE TO COOLER AEROSOL 5L FIO2 28% , SATURATION 98% , ON TELE MONITOR SR HR 64 AT THIS TIME, WITH G TUBE FEEDING ORDERED, NO RESIDUAL NOTED AT THIS SABINA ,KEEP HOB ELEVATED AT ALL TIME , BED IN LOWEST AD LOCKED POSITION , ON IVF ORDERED BY TRENT HULL AND ORAL SUCTION DONE , WITH SUBPUBIC CATH TO GRAVITY WITH YELLOW COLOR URINE, WITH RECTAL FLEXI SEAL TUBE WITH LIQUID DARK BRON DOLOR STOOL , SAFETY MEASURE IMPLEMENTED, WILL CONT TO MONITOR CLOSELY
--- NOTE | 2022-12-21 19:00 | NUR ---
RN NOTE Report received from Jackelyn POLLOCK, patient in bed, in no acute distress, obtunded, saturation at 100% on 5L via t-piece to cool aerosol at 28% FIO2, SR on the monitor, HR is 63. KURTIS midline patent and flushing well with 1/2 NS infusing at 80 ml/hr. PEG tube in place, positive placement noted, no residual with jevity at 55 ml/hr. Suprapubic catheter draining to a clear, yellow output. Safety measures in place, bed is locked and at lowest position, bed alarm on, HOB elevated, call light within reach of patient. Will continue to monitor and reassess.
[2022-12-21 20:00] VITALS: BP 121/79
[2022-12-22] VITALS: BP 121/71
[2022-12-22] MEDS: MORPHINE SULFATE SOLN CONCENTRATED 20 MG/ML GT SCH ×4 (00:10→18:10)
[2022-12-22] MEDS: ACETAMINOPHEN 650 MG/20.3 ML UDC GT SCH ×4 (03:24→20:31)
[2022-12-22 04:00] VITALS: BP 136/90
[2022-12-22] MEDS: GABAPENTIN 300 MG CAPSULE GT SCH ×4 (05:12→20:30)
[2022-12-22] MEDS: IV 1/2NS 1000 ML 1,000 ML IV PRN ×2 (05:12→20:44)
[2022-12-22] MEDS: PROPRANOLOL HCL 40 MG TABLET GT SCH ×3 (05:13→20:31)
[2022-12-22 07:15] LABS: CALCIUM, SERUM 9.8 mg/dL (8.5-10.1); CREATININE 0.5 mg/dL (0.6-1.3); POTASSIUM 4.3 mmol/L (3.5-5.1)
--- NOTE | 2022-12-22 07:45 | NUR ---
ACCOUNTS RECEIVABLE COORDINATOR OPENING NOTE received patient in bed, in no acute distress, obtunded, saturation at 100% on 5L via t-piece to cool aerosol at 28% FIO2, SR on the monitor, HR 54. KURTIS midline patent and flushing well with 1/2 NS infusing at 80 ml/hr. PEG tube in place, positive placement noted, no residual with jevity at 55 ml/hr. Suprapubic catheter draining to a clear, yellow output. ALL Safety measures in place, bed is locked and at lowest position, bed alarm on, HOB elevated, call light within reach of patient. BED ALARM ON
[2022-12-22 08:00] VITALS: BP 146/83
[2022-12-22] MEDS: PANTOPRAZOLE 40 MG/PACK PACK GT SCH (08:52)
[2022-12-22] MEDS: PHENOBARBITAL 60 MG/15 ML UDC GT SCH ×2 (08:52→17:14)
[2022-12-22] MEDS: Z GUARD REMEDY 4 OZ OINT TP SCH (09:03)
[2022-12-22 12:00] VITALS: BP 138/87
--- NOTE | 2022-12-22 12:00 | NUR ---
rn note called pharamcy for 1200 morphine solution. not avaialable at this time. said they will bring it up
--- NOTE | 2022-12-22 13:08 | NUR ---
rn note gabapentin 300 mg capsule that was pulled out around 1250 was not given to patient due to it being accidentally thrown away.noptified pharmacy, said okayu to pull another one out and give to pt
[2022-12-22 16:00] VITALS: BP 112/72
--- NOTE | 2022-12-22 19:14 | NUR ---
SUPERVISOR PASTRY CLOSING NOTE patient in bed, in no acute distress, obtunded, saturation at 100% on 5L via t-piece to cool aerosol at 28% FIO2, SR on the monitor, HR 54. KURTIS midline patent and flushing well with 1/2 NS infusing at 80 ml/hr. PEG tube in place, positive placement noted, no residual with jevity at 55 ml/hr. Suprapubic catheter draining to a clear, yellow output. ALL Safety measures in place, bed is locked and at lowest position, bed alarm on, HOB elevated, call light within reach of patient. BED ALARM ON.ENDORSED TO LOCK AND DAM OPERATOR RN FOR CONTUITY OF CARE
--- NOTE | 2022-12-22 19:30 | NUR ---
MAT GAUGER OPENING NOTES RECEIVED PATIENT ON BED, OBTUNDED, OPEN EYES. ON COOL AEROSOL @ 5LPM, FIO2- 30% SATING AT 100%. NO SOB NOTED. AFEBRILE, NO S/S OF DISTRESS NOTED. NOTED WITH KURTIS MIDLINE, FLUSHED WITH NS, NO S/S OF INFILTRATION NOTED, RUNNING WITH 1/2 NS @ 80 ML/HR. G-TUBE PATENT INTACT, VERIFIED PLACEMENT BY AUSCULTATION, NO RESIDUAL NOTED UPON ASPIRATION, WITH JEVITY 1.2 @ 55 ML/HR. HEAD OF BED KEPT ELEVATED. SUPRA PUBIC CATHETER INTACT DRAINING WITH CLEAR YELLOW URINE VIA GRAVITY. FLEXISEAL INTACT DRAINING WITH BROWNISH COLORED STOOL VIA GRAVITY. ALL SAFETY PRECAUTION PROVIDED. BED IN LOWEST POSITION, LOCKED. CALL LIGHT WITH IN REACH. WILL CONTINUE TO MONITOR THROUGHOUT THE SHIFT.
[2022-12-22 20:00] VITALS: BP 106/69
[2022-12-22] MEDS: JEVITY 1.2 CAL 1,000 ML BOTTLE GT PRN (20:45)
[2022-12-23] VITALS: BP 99/57
[2022-12-23] MEDS: MORPHINE SULFATE SOLN CONCENTRATED 20 MG/ML GT SCH ×3 (00:03→12:22)
[2022-12-23] MEDS: ACETAMINOPHEN 650 MG/20.3 ML UDC GT SCH ×2 (03:56→08:57)
[2022-12-23 04:00] VITALS: BP 136/69
[2022-12-23] MEDS: GABAPENTIN 300 MG CAPSULE GT SCH ×2 (05:13→13:23)
[2022-12-23] MEDS: PROPRANOLOL HCL 40 MG TABLET GT SCH ×2 (05:14→12:23)
[2022-12-23 06:38] LABS: BASOPHILS % (AUTO) 0.5 % (0.0-2.0); EOSINOPHILS % (AUTO) 5.9 % (0.0-6.0); HEMATOCRIT 31 % (39-51); HEMOGLOBIN 10.1 g/dL (13.5-17.5); LYMPHOCYTES # (AUTO) 1.2 K/uL (0.8-4.8); LYMPHOCYTES % (AUTO) 21.2 % (20.0-44.0); MEAN CORPUSCULAR HGB CONC 32 g/dl (31.0-36.0); MEAN CORPUSCULAR VOLUME 89 fL (80-96); MONOCYTES # (AUTO) 0.5 K/uL (0.1-1.30); MONOCYTES % (AUTO) 8.8 % (2.0-12.0); NEUTROPHILS # (AUTO) 3.7 K/uL (1.8-8.9); NEUTROPHILS % (AUTO) 63.6 % (43.0-81.0); PLATELET COUNT (AUTO) 590 K/uL (150-450); RED BLOOD CELL COUNT(AUTO) 3.52 MIL/uL (4.5-6.0); WHITE BLOOD COUNT (AUTO) 5.9 K/uL (4.3-11.0)
--- NOTE | 2022-12-23 06:42 | NUR ---
VACUUM TRUCK DRIVER CLOSING NOTES RECEIVED PATIENT ON BED, OBTUNDED, OPEN EYES. ON COOL AEROSOL @ 5LPM, FIO2- 30% SATING AT 100%. NO SOB NOTED. AFEBRILE, NO S/S OF DISTRESS NOTED. NOTED WITH KURTIS MIDLINE, FLUSHED WITH NS, NO S/S OF INFILTRATION NOTED, RUNNING WITH 1/2 NS @ 80 ML/HR. G-TUBE PATENT INTACT, VERIFIED PLACEMENT BY AUSCULTATION, NO RESIDUAL NOTED UPON ASPIRATION, WITH JEVITY 1.2 @ 55 ML/HR. HEAD OF BED KEPT ELEVATED. SUPRA PUBIC CATHETER INTACT DRAINING WITH CLEAR YELLOW URINE VIA GRAVITY. FLEXISEAL INTACT DRAINING WITH BROWNISH COLORED STOOL VIA GRAVITY. ALL SAFETY PRECAUTION PROVIDED. BED IN LOWEST POSITION, LOCKED. CALL LIGHT WITH IN REACH. ALL DUE MEDS GIVEN, KEPT DRY AND CLEAN, WILL ENDORSE TO AM SHIFT NURSE FOR CONTINUITY OF CARE.
--- NOTE | 2022-12-23 07:17 | NUR ---
PRISM MEASURER CLOSING NOTE patient in bed, in no acute distress, obtunded, saturation at 100% on 5L via t-piece to cool aerosol at 28% FIO2, SB on the monitor, HR 59. KURTIS midline patent and flushing well with 1/2 NS infusing at 80 ml/hr. PEG tube in place, positive placement noted, no residual with jevity at 55 ml/hr. Suprapubic catheter draining to a clear, yellow output. ALL Safety measures in place, bed is locked and at lowest position, bed alarm on, HOB elevated, call light within reach of patient. Addendum: 12/23/22 at 0718 by MIKALA PAULA RN OPENING NOTE
[2022-12-23 07:39] LABS: CREATININE 0.5 mg/dL (0.6-1.3); MAGNESIUM 1.8 mg/dL (1.8-2.4); PHOSPHORUS 5.4 mg/dL (2.5-4.9); POTASSIUM 4.4 mmol/L (3.5-5.1)
[2022-12-23 07:49] LABS: CALCIUM, SERUM 10.1 mg/dL (8.5-10.1)
[2022-12-23 08:00] VITALS: BP 104/71
[2022-12-23] MEDS: PANTOPRAZOLE 40 MG/PACK PACK GT SCH (08:09)
[2022-12-23] MEDS: Z GUARD REMEDY 4 OZ OINT TP SCH (08:09)
[2022-12-23] MEDS: PHENOBARBITAL 60 MG/15 ML UDC GT SCH (08:57)
[2022-12-23] MEDS: IV 1/2NS 1000 ML 1,000 ML IV PRN (09:30)
[2022-12-23] MEDS ORDERED: PROP40TA7 GT (10:48)
[2022-12-23] MEDS ORDERED: CLON1PAT TD (10:48)
[2022-12-23] MEDS ORDERED: PHEN20EL5 GT (10:48)
[2022-12-23 12:00] VITALS: BP 118/80
[2022-12-23 12:23] VITALS: BP 118/80
[2022-12-23] MEDS: JEVITY 1.2 CAL 1,000 ML BOTTLE GT PRN (13:23)
--- NOTE | 2022-12-23 16:08 | NUR ---
rn note pt left in stable condition. transfereed to [facility] on 2nd floor room 277-2. removed tele monitor,.transferred ACLS protocol
[2022-12-24] MEDS ORDERED: PHEN60TA11 GT (10:39)
[2022-12-24] MEDS ORDERED: LACT-209 GT (10:39)
[2022-12-24] MEDS ORDERED: ONDA4TAB5 GT (10:39)
[2022-12-24] MEDS ORDERED: GABA-532 GT (10:39)
[2022-12-24] MEDS ORDERED: PROP40TA7 GT (10:39)
[2022-12-24] MEDS ORDERED: ALLA266C2 TP (10:39)
[2022-12-24] MEDS ORDERED: CLON1PAT TD (10:39)
[2022-12-24] MEDS ORDERED: MORP15TA GT (10:39)
[2022-12-24] MEDS ORDERED: IPRA0.2S9 IH (10:40)
[2022-12-24] MEDS ORDERED: ALBU2.5V38 IH (10:40)
== END 2022-12-23 15:46 | DRG 720 ==
LOC: ER 06:43 → TELE1 12:54 → ICU 16:58 → TELE1 12-20 14:33
PROVIDERS: ADMIT Internal Medicine; ATTEND Nurse Practitioner Acute Care
PROC: 5A1955Z Respiratory Ventilation, Greater than 96 Consecutive Hours (ICD-10-PCS; principal; 2022-12-14)
PROC: 05HC33Z Insertion of Infusion Device into Left Basilic Vein, Percutaneous Approach (ICD-10-PCS; 2022-12-15)
PROC: 05HA33Z Insertion of Infusion Device into Left Brachial Vein, Percutaneous Approach (ICD-10-PCS; 2022-12-17)
DX: A41.9 Sepsis, unspecified organism (principal); J69.0 Pneumonitis due to inhalation of food and vomit; G93.40 Encephalopathy, unspecified; R53.2 Functional quadriplegia; G93.1 Anoxic brain damage, not elsewhere classified; J96.10 Chronic respiratory failure, unspecified whether with hypoxia or hypercapnia; R13.10 Dysphagia, unspecified; Z87.820 Personal history of traumatic brain injury; D63.8 Anemia in other chronic diseases classified elsewhere; E83.52 Hypercalcemia; F41.9 Anxiety disorder, unspecified; G90.8 Other disorders of autonomic nervous system; N31.9 Neuromuscular dysfunction of bladder, unspecified; S06.30AS Unspecified focal traumatic brain injury with loss of consciousness status unknown, sequela; V89.2XXS Person injured in unspecified motor-vehicle accident, traffic, sequela; R56.9 Unspecified convulsions; S01.01XD Laceration without foreign body of scalp, subsequent encounter; X58.XXXD Exposure to other specified factors, subsequent encounter; Z20.822 Contact with and (suspected) exposure to COVID-19; Z74.01 Bed confinement status; Z93.1 Gastrostomy status; Z93.0 Tracheostomy status
CPT/HCPCS: 31720; 36415; 36600; 71045-TC; 80048-TC; 80053-TC; 80076-TC; 80202-TC; 82550-TC; 82553; 82803-TC; 82962-TC; 83605-TC; 83735-TC; 84100-TC; 84484-TC; 85025-TC; 87040-TC; 87081-TC; 87086-TC; 93307-TC; 93970-TC; 93971-TC; 94003-TC; 94640-TC; 94664-TC; 94762-TC; 94799-TC; 95819-TC; A4223; A4623; A7526; C9113; C9803; G0378; J0360; J1650; J2060; J2543; J3370; J3475; J3490; J7030; J7050; J7060

== ENCOUNTER 2023-08-11 19:28 | Inpatient (IN) | payer MEDICAID ==
[~2023-08-11] VITALS: Ht 167.6 cm; Wt 67.2 kg
[~2023-08-11 19:28] MED LIST: ACET650S26 GT; ALBU2.5V38 IH; ALLA266C2 TP; CLON1PAT TD; GABA-532 GT; IPRA0.2S9 IH; LACT-209 GT; MORP15TA GT; ONDA4TAB5 GT; PANT40SU2 GT; PHEN60TA11 GT; PROP40TA7 GT
[2023-08-11] MEDS ORDERED: LEVETIRACETAM (500MG) 500 MG/5 ML VIAL IV ONE (20:00)
[2023-08-11] MEDS ORDERED: IV NS 0.9% 500 ML BAG IV ONE (20:00)
[2023-08-11] MEDS ORDERED: LEVETIRACETAM (500MG) 1,000 MG in IV NS 0.9% 90 ML IV SCH (20:00)
[2023-08-11 20:04] LABS: BASOPHILS % (AUTO) 0.3 % (0.0-2.0); EOSINOPHILS # (AUTO) 0.1 K/uL (0.0-0.7); EOSINOPHILS % (AUTO) 2.1 % (0.0-6.0); HEMATOCRIT 36 % (39-51); LYMPHOCYTES # (AUTO) 1.1 K/uL (0.8-4.8); LYMPHOCYTES % (AUTO) 29.8 % (20.0-44.0); MEAN CORPUSCULAR HEMOGLOBIN 30 PG (26.0-33.0); MEAN CORPUSCULAR HGB CONC 33 g/dl (31.0-36.0); MEAN CORPUSCULAR VOLUME 89 fL (80-96); MONOCYTES # (AUTO) 0.4 K/uL (0.1-1.30); NEUTROPHILS # (AUTO) 2.1 K/uL (1.8-8.9); NEUTROPHILS % (AUTO) 57.8 % (43.0-81.0); PLATELET COUNT (AUTO) 268 K/uL (150-450); RED BLOOD CELL COUNT(AUTO) 4.06 MIL/uL (4.5-6.0); WHITE BLOOD COUNT (AUTO) 3.7 K/uL (4.3-11.0)
[2023-08-11 20:13] LABS: CALCIUM, SERUM 9.6 mg/dL (8.5-10.1); CREATININE 0.8 mg/dL (0.6-1.3); POTASSIUM 4.3 mmol/L (3.5-5.1)
[2023-08-11 20:19] VITALS: O2SAT 100
[2023-08-11 20:19] LABS: ALBUMIN 3.5 g/dL (3.4-5.0); BILIRUBIN,DIRECT 0.1 mg/dL (0.0-0.2); BILIRUBIN,TOTAL 0.2 mg/dL (0.2-1.0); TOTAL PROTEIN, SERUM 7.8 g/dL (6.4-8.2)
[2023-08-11] MEDS ORDERED: MORPHINE SULFATE IR 15 MG TABLET GT PRN (22:00)
[2023-08-11] MEDS ORDERED: JEVITY 1.2 CAL 1,000 ML BOTTLE GT SCH (22:00)
[2023-08-11] MEDS ORDERED: MAG HYDROX/AL HYDROX/SIMETH 30 ML UDC PO PRN (22:30)
[2023-08-11] MEDS ORDERED: ACETAMINOPHEN 325 MG TABLET PO PRN (22:30)
[2023-08-11] MEDS ORDERED: MAGNESIUM HYDROXIDE 30 ML UDC PO PRN (22:30)
[2023-08-11] MEDS ORDERED: IPRATROPIUM NEB FS 0.5 MG/2.5 ML AMPUL.NEB NEB PRN (22:30)
[2023-08-11] MEDS ORDERED: Z GUARD REMEDY 4 OZ OINT TP PRN (22:30)
[2023-08-11] MEDS ORDERED: ALBUTEROL FS 2.5 MG/3 ML VIAL.NEB NEB PRN (22:30)
[2023-08-11] MEDS ORDERED: ONDANSETRON HCL/PF 4 MG/2 ML VIAL IVP PRN (22:30)
[2023-08-11] MEDS ORDERED: ZOLPIDEM TARTRATE 5 MG TABLET PO PRN (22:30)
[2023-08-11 23:14] VITALS: O2SAT 100
[2023-08-12] VITALS (10 sets, daily range): BP systolic 100–110; BP diastolic 67–76; TEMP 97.7–98.5; O2SAT 95–100
[2023-08-12] MEDS: ENOXAPARIN SODIUM 40 MG/0.4 ML DISP.SYRIN SQ SCH ×2 (01:59→21:45)
[2023-08-12] MEDS: PROPRANOLOL HCL 40 MG TABLET GT SCH ×3 (05:01→21:00)
[2023-08-12] MEDS: GABAPENTIN 100 MG CAPSULE GT SCH ×3 (05:01→21:40)
[2023-08-12 07:18] LABS: BASOPHILS % (AUTO) 0.5 % (0.0-2.0); EOSINOPHILS # (AUTO) 0.1 K/uL (0.0-0.7); EOSINOPHILS % (AUTO) 1.4 % (0.0-6.0); HEMATOCRIT 36 % (39-51); HEMOGLOBIN 12.2 g/dL (13.5-17.5); LYMPHOCYTES # (AUTO) 1.7 K/uL (0.8-4.8); LYMPHOCYTES % (AUTO) 32.1 % (20.0-44.0); MEAN CORPUSCULAR HEMOGLOBIN 30 PG (26.0-33.0); MEAN CORPUSCULAR HGB CONC 34 g/dl (31.0-36.0); MEAN CORPUSCULAR VOLUME 90 fL (80-96); MONOCYTES # (AUTO) 0.4 K/uL (0.1-1.30); MONOCYTES % (AUTO) 6.8 % (2.0-12.0); NEUTROPHILS # (AUTO) 3.1 K/uL (1.8-8.9); NEUTROPHILS % (AUTO) 59.2 % (43.0-81.0); PLATELET COUNT (AUTO) 251 K/uL (150-450); RED BLOOD CELL COUNT(AUTO) 4.03 MIL/uL (4.5-6.0); RED CELL DISTRIBUTION WIDTH 13.4 % (11.5-15.0); WHITE BLOOD COUNT (AUTO) 5.2 K/uL (4.3-11.0)
[2023-08-12 07:42] LABS: CALCIUM, SERUM 9.7 mg/dL (8.5-10.1); CREATININE 0.6 mg/dL (0.6-1.3); MAGNESIUM 2.1 mg/dL (1.8-2.4); PHOSPHORUS 4.1 mg/dL (2.5-4.9); POTASSIUM 4.1 mmol/L (3.5-5.1)
[2023-08-12] MEDS ORDERED: DOCU50LI GT (09:00)
[2023-08-12] MEDS ORDERED: SENN-261 GT (09:00)
[2023-08-12] MEDS ORDERED: PANTOPRAZOLE 40 MG/PACK PACK GT SCH (09:00)
[2023-08-12] MEDS ORDERED: PETR113O TP (09:00)
[2023-08-12] MEDS ORDERED: BISA10SU11 RC (09:00)
[2023-08-12] MEDS ORDERED: POLY17PO4 GT (09:00)
[2023-08-12] MEDS ORDERED: HYDR1SOL TP (09:00)
[2023-08-12] MEDS ORDERED: PHENOBARBITAL 30 MG TABLET GT SCH (09:00)
[2023-08-12] MEDS ORDERED: IPRA0.2S9 IH (09:00)
[2023-08-12] MEDS ORDERED: ALBU2.5V13 IH (09:00)
[2023-08-12] MEDS: LEVETIRACETAM (500MG) 500 MG in IV NS 0.9% 100 ML IV SCH ×2 (09:40→21:40)
[2023-08-12] MEDS: PANTOPRAZOLE 40 MG VIAL IV SCH (09:41)
[2023-08-12] MEDS: JEVITY 1.5 CAL LIQUID 1,000 ML BOTTLE GT PRN (10:12)
[2023-08-12] MEDS: PHENOBARBITAL 60 MG/15 ML UDC PEG SCH (18:05)
[2023-08-13] VITALS (12 sets, daily range): BP systolic 101–136; BP diastolic 67–89; TEMP 97.7–98.4; O2SAT 100
[2023-08-13] MEDS: GABAPENTIN 100 MG CAPSULE GT SCH ×3 (04:14→21:01)
[2023-08-13] MEDS: PROPRANOLOL HCL 40 MG TABLET GT SCH ×3 (05:00→21:00)
[2023-08-13] MEDS: LEVETIRACETAM (500MG) 500 MG in IV NS 0.9% 100 ML IV SCH ×2 (09:11→21:01)
[2023-08-13] MEDS: PANTOPRAZOLE 40 MG VIAL IV SCH (09:11)
[2023-08-13] MEDS: PHENOBARBITAL 60 MG/15 ML UDC PEG SCH ×2 (09:14→17:36)
[2023-08-13] MEDS ORDERED: MAG HYDROX/AL HYDROX/SIMETH 30 ML UDC GT PRN (10:17)
[2023-08-13] MEDS ORDERED: ZOLPIDEM TARTRATE 5 MG TABLET GT PRN (10:17)
[2023-08-13] MEDS ORDERED: MAGNESIUM HYDROXIDE 30 ML UDC GT PRN (10:17)
[2023-08-13] MEDS ORDERED: ACETAMINOPHEN 650 MG/20.3 ML UDC GT PRN (10:30)
[2023-08-13] MEDS: JEVITY 1.5 CAL LIQUID 1,000 ML BOTTLE GT PRN (17:37)
[2023-08-13] MEDS ORDERED: CLONIDINE HCL 0.1 MG TABLET PO PRN (20:30)
[2023-08-13] MEDS: ENOXAPARIN SODIUM 40 MG/0.4 ML DISP.SYRIN SQ SCH (21:03)
[2023-08-14] VITALS (12 sets, daily range): BP systolic 99–133; BP diastolic 66–84; TEMP 97.3–98.3; O2SAT 99–100
[2023-08-14] MEDS: PROPRANOLOL HCL 40 MG TABLET GT SCH ×3 (05:00→21:20)
[2023-08-14] MEDS: GABAPENTIN 100 MG CAPSULE GT SCH ×3 (05:35→21:20)
[2023-08-14 07:45] LABS: BASOPHILS % (AUTO) 0.5 % (0.0-2.0); EOSINOPHILS # (AUTO) 0.1 K/uL (0.0-0.7); EOSINOPHILS % (AUTO) 2.9 % (0.0-6.0); HEMATOCRIT 34 % (39-51); HEMOGLOBIN 11.7 g/dL (13.5-17.5); LYMPHOCYTES # (AUTO) 1.3 K/uL (0.8-4.8); LYMPHOCYTES % (AUTO) 45.2 % (20.0-44.0); MEAN CORPUSCULAR HEMOGLOBIN 30 PG (26.0-33.0); MEAN CORPUSCULAR HGB CONC 34 g/dl (31.0-36.0); MEAN CORPUSCULAR VOLUME 89 fL (80-96); MONOCYTES # (AUTO) 0.3 K/uL (0.1-1.30); NEUTROPHILS # (AUTO) 1.2 K/uL (1.8-8.9); NEUTROPHILS % (AUTO) 41.4 % (43.0-81.0); PLATELET COUNT (AUTO) 286 K/uL (150-450); RED BLOOD CELL COUNT(AUTO) 3.85 MIL/uL (4.5-6.0); RED CELL DISTRIBUTION WIDTH 13.3 % (11.5-15.0)
[2023-08-14 08:05] LABS: CALCIUM, SERUM 9.7 mg/dL (8.5-10.1)
[2023-08-14] MEDS: PHENOBARBITAL 60 MG/15 ML UDC PEG SCH ×2 (08:08→17:15)
[2023-08-14] MEDS: LEVETIRACETAM SOL (5 ML) 100 MG/ML UDC PO SCH ×2 (08:08→21:20)
[2023-08-14] MEDS: PANTOPRAZOLE 40 MG/PACK PACK GT SCH (08:08)
[2023-08-14 08:14] LABS: CALCIUM, SERUM 9.7 mg/dL (8.5-10.1); CREATININE 0.7 mg/dL (0.6-1.3); MAGNESIUM 1.8 mg/dL (1.8-2.4); PHOSPHORUS 4.3 mg/dL (2.5-4.9)
[2023-08-14] MEDS ORDERED: LEVE100S PO (10:31)
[2023-08-14] MEDS ORDERED: PHEN20EL5 PEG ×2 (10:31)
[2023-08-14] MEDS: JEVITY 1.5 CAL LIQUID 1,000 ML BOTTLE GT PRN (15:11)
[2023-08-14] MEDS: ENOXAPARIN SODIUM 40 MG/0.4 ML DISP.SYRIN SQ SCH (21:22)
[2023-08-15] VITALS (8 sets, daily range): BP systolic 107–134; BP diastolic 70–96; TEMP 98–98.6; O2SAT 100
[2023-08-15] MEDS: PROPRANOLOL HCL 40 MG TABLET GT SCH ×2 (05:00→13:42)
[2023-08-15] MEDS: GABAPENTIN 100 MG CAPSULE GT SCH ×2 (05:12→13:43)
[2023-08-15] MEDS: LEVETIRACETAM SOL (5 ML) 100 MG/ML UDC PO SCH (08:49)
[2023-08-15] MEDS: PHENOBARBITAL 60 MG/15 ML UDC PEG SCH (08:50)
[2023-08-15] MEDS: PANTOPRAZOLE 40 MG/PACK PACK GT SCH (08:50)
[2023-08-15] MEDS ORDERED: MAGN400O6 GT (15:56)
[2023-08-15] MEDS ORDERED: MORP15TA GT (15:56)
[2023-08-15] MEDS ORDERED: CLON0.1T GT (15:56)
[2023-08-15] MEDS ORDERED: PHEN30TA40 GT (15:56)
[2023-08-15] MEDS ORDERED: ZOLP5TAB8 GT (15:56)
[2023-08-15] MEDS ORDERED: ENOX40DI SQ (15:56)
[2023-08-15] MEDS ORDERED: MAG30ORA GT (15:56)
[2023-08-15] MEDS ORDERED: LACT-96 GT (15:56)
[2023-08-15] MEDS ORDERED: PHEN60TA11 GT (15:56)
[2023-08-15] MEDS ORDERED: ALLA266C2 TP (15:56)
[2023-08-15] MEDS ORDERED: LEVE100S GT (15:56)
== END 2023-08-15 14:35 | DRG 53 ==
LOC: ER 19:43 → TELE1 23:58
PROVIDERS: ADMIT Nurse Practitioner Acute Care; ATTEND Internal Medicine
DX: G40.909 Epilepsy, unspecified, not intractable, without status epilepticus (principal); R40.3 Persistent vegetative state; G93.41 Metabolic encephalopathy; G93.1 Anoxic brain damage, not elsewhere classified; D68.69 Other thrombophilia; Z99.11 Dependence on respirator [ventilator] status; Z93.0 Tracheostomy status; J96.10 Chronic respiratory failure, unspecified whether with hypoxia or hypercapnia; R13.10 Dysphagia, unspecified; Z74.01 Bed confinement status; Z87.820 Personal history of traumatic brain injury; Z93.1 Gastrostomy status; Z91.148 Patient's other noncompliance with medication regimen for other reason; V89.2XXS Person injured in unspecified motor-vehicle accident, traffic, sequela
CPT/HCPCS: 31720; 36415; 70450-TC; 71045-TC; 80048-TC; 80076-TC; 80184; 82310-TC; 83735-TC; 84100-TC; 84439-TC; 85025-TC; 94640-TC; 94664-TC; 94799-TC; A4223; A7526; C9113; G0378; J1650; J1953; J7030; J7040

== ENCOUNTER 2024-03-15 20:50 | Emergency (ER) | payer MEDICAID ==
[~2024-03-15] VITALS: Ht 167.6 cm; Wt 63.5 kg
[~2024-03-15 20:50] MED LIST changes: +CLON0.1T GT; -CLON1PAT TD; +ENOX40DI SQ; -LACT-209 GT; +LACT-96 GT; +LEVE100S GT; +MAG30ORA GT; +MAGN400O6 GT; +PHEN30TA40 GT; +ZOLP5TAB8 GT
[2024-03-15 21:30] VITALS: O2SAT 100
[2024-03-15] MEDS: LEVETIRACETAM (500MG) 750 MG in IV NS 0.9% 100 ML IV SCH (21:30)
[2024-03-15 21:58] LABS: BASOPHILS % (AUTO) 0.7 % (0.0-2.0); EOSINOPHILS # (AUTO) 0.1 K/uL (0.0-0.7); EOSINOPHILS % (AUTO) 2.6 % (0.0-6.0); HEMATOCRIT 38 % (39-51); HEMOGLOBIN 12.6 g/dL (13.5-17.5); LYMPHOCYTES # (AUTO) 1.2 K/uL (0.8-4.8); LYMPHOCYTES % (AUTO) 29.9 % (20.0-44.0); MEAN CORPUSCULAR HEMOGLOBIN 29 PG (26.0-33.0); MEAN CORPUSCULAR HGB CONC 34 g/dl (31.0-36.0); MEAN CORPUSCULAR VOLUME 87 fL (80-96); MONOCYTES # (AUTO) 0.3 K/uL (0.1-1.30); MONOCYTES % (AUTO) 7.4 % (2.0-12.0); NEUTROPHILS # (AUTO) 2.4 K/uL (1.8-8.9); NEUTROPHILS % (AUTO) 59.4 % (43.0-81.0); PLATELET COUNT (AUTO) 403 K/uL (150-450); RED CELL DISTRIBUTION WIDTH 14.9 % (11.5-15.0); WHITE BLOOD COUNT (AUTO) 4.1 K/uL (4.3-11.0)
[2024-03-15] MEDS: LEVETIRACETAM (500MG) 1,000 MG in IV NS 0.9% 90 ML IV SCH (22:00)
[2024-03-15 22:08] LABS: ALBUMIN 2.9 g/dL (3.4-5.0); CALCIUM, SERUM 9.7 mg/dL (8.5-10.1); CREATININE 0.7 mg/dL (0.6-1.3); POTASSIUM 3.7 mmol/L (3.5-5.1)
[2024-03-15 23:01] LABS: BILIRUBIN,TOTAL 0.2 mg/dL (0.2-1.0); TOTAL PROTEIN, SERUM 7.4 g/dL (6.4-8.2)
[2024-03-15] MEDS ORDERED: LEVETIRACETAM (500MG) 500 MG/5 ML VIAL IV ONE ×2 (23:06→23:09)
[2024-03-15 23:47] VITALS: BP 113/80; TEMP 98; O2SAT 100
== END 2024-03-15 23:48 | disposition admitted as inpatient to this hospital (09) ==
LOC: ER 20:52
DX: R56.9 Unspecified convulsions (principal); Z98.890 Other specified postprocedural states; Z79.891 Long term (current) use of opiate analgesic; Z79.899 Other long term (current) drug therapy; Z79.1 Long term (current) use of non-steroidal anti-inflammatories (NSAID)
CPT/HCPCS: 99285; 96365; 85025; 80048; 80076; 80184; 36415; 82962; J7030 ×2; J1953 ×3

== ENCOUNTER → 2024-07-24 23:59 | Inpatient (IN) | payer MEDICAID ==
[2023-07-26] VITALS (10 sets, daily range): BP systolic 104–105; BP diastolic 61–68; TEMP 98.1–98.6; O2SAT 96–100
[2023-07-26] MEDS: HYDROGEN PEROXIDE 480 ML BOTTLE TP SCH (09:43)
[2023-07-26] MEDS: DOCUSATE SODIUM LIQ 100 MG/10 ML UDC GT SCH (09:44)
[2023-07-26] MEDS: POLYETHYLENE GLYCOL 3350 17 GM POWD.PACK GT SCH (09:44)
[2023-07-26] MEDS: PHENOBARBITAL 60 MG TABLET GT SCH (09:44)
[2023-07-26] MEDS: PANTOPRAZOLE 40 MG/PACK PACK GT SCH (09:46)
[2023-07-26] MEDS: VITS A AND D/WHITE PET/LANOLIN 5 GM PACKET TP SCH (09:46)
[2023-07-26] MEDS: Z GUARD REMEDY 4 OZ OINT TP SCH (09:46)
[2023-07-26] MEDS: IPRATROPIUM NEB FS 0.5 MG/2.5 ML AMPUL.NEB NEB SCH (12:43)
[2023-07-26] MEDS: ALBUTEROL FS 2.5 MG/3 ML VIAL.NEB NEB SCH (12:44)
[2023-07-26] MEDS: GABAPENTIN 300 MG CAPSULE GT SCH (13:00)
[2023-07-26] MEDS: PROPRANOLOL HCL 40 MG TABLET GT SCH (13:00)
[2023-07-26] MEDS: SENNOSIDES 8.6 MG TABLET GT SCH (20:54)
[2023-07-27] VITALS (12 sets, daily range): BP systolic 107–149; BP diastolic 58–80; TEMP 98.1–98.7; O2SAT 97–100
[2023-07-27] MEDS: JEVITY 1.5 CAL LIQUID 1,000 ML BOTTLE GT PRN (07:17)
[2023-07-28] VITALS (13 sets, daily range): BP systolic 116–118; BP diastolic 65–78; TEMP 96.8–98.6; O2SAT 98–100
[2023-07-29] VITALS (11 sets, daily range): BP systolic 112; BP diastolic 78; TEMP 97.8; O2SAT 98–100
[2023-07-29] MEDS: CLONIDINE HCL 0.1MG/24H PTWK 1 EA PATCH TD SCH (07:37)
[2023-07-30] VITALS (12 sets, daily range): BP systolic 97–105; BP diastolic 61–63; TEMP 97.4–98.1; O2SAT 99–100
[2023-07-31] VITALS (11 sets, daily range): BP systolic 100–104; BP diastolic 65–77; TEMP 97.7–98.2; O2SAT 98–100
[2023-08-01] VITALS (14 sets, daily range): BP systolic 99–101; BP diastolic 63–64; TEMP 97.9; O2SAT 98–100
[2023-08-02] VITALS (13 sets, daily range): BP systolic 99–131; BP diastolic 66–84; TEMP 97.9–98; O2SAT 99–100
[2023-08-03] VITALS (12 sets, daily range): BP systolic 102; BP diastolic 66–67; TEMP 97.7; O2SAT 99–100
[2023-08-04] VITALS (14 sets, daily range): BP systolic 103–109; BP diastolic 70–73; TEMP 97.9–98; O2SAT 96–100
[2023-08-05] VITALS (15 sets, daily range): BP systolic 100–129; BP diastolic 82–88; TEMP 97.9–98.1; O2SAT 97–100
[2023-08-06] VITALS (12 sets, daily range): BP systolic 101–106; BP diastolic 70–74; TEMP 98.1–98.2; O2SAT 97–100
[2023-08-07] VITALS (13 sets, daily range): BP systolic 104–118; BP diastolic 68–71; TEMP 97.9–98.1; O2SAT 95–100
[2023-08-08] VITALS (12 sets, daily range): BP systolic 110–111; BP diastolic 61–83; TEMP 97.6–97.7; O2SAT 98–100
[2023-08-09] VITALS (12 sets, daily range): BP systolic 108–109; BP diastolic 70–76; TEMP 97.7; O2SAT 97–100
[2023-08-10] VITALS (11 sets, daily range): BP systolic 108–109; BP diastolic 78–98; TEMP 97.7–98.1; O2SAT 98–100
[2023-08-11] VITALS (9 sets, daily range): BP systolic 100–169; BP diastolic 62–110; TEMP 97.8–98.4; O2SAT 97–100
[2023-08-15 20:00] VITALS: BP 118/85; TEMP 98.3; O2SAT 99
[2023-08-15 20:06] VITALS: O2SAT 99
[2023-08-15 20:21] VITALS: O2SAT 98; O2SAT 99
[2023-08-15] MEDS: HYDROGEN PEROXIDE 480 ML BOTTLE TP SCH (21:00)
[2023-08-15] MEDS: GABAPENTIN 300 MG CAPSULE GT SCH (21:14)
[2023-08-15] MEDS: LEVETIRACETAM SOL (5 ML) 100 MG/ML UDC GT SCH (21:14)
[2023-08-15 23:22] VITALS: O2SAT 99
[2023-08-16] VITALS (12 sets, daily range): BP systolic 103–104; BP diastolic 73–80; TEMP 97.7–98.4; O2SAT 98–100
[2023-08-16] MEDS: Z GUARD REMEDY 4 OZ OINT TP SCH ×2 (09:17→21:48)
[2023-08-16] MEDS: PHENOBARBITAL 60 MG TABLET GT SCH ×2 (09:17→17:11)
[2023-08-16] MEDS: VITS A AND D/WHITE PET/LANOLIN 5 GM PACKET TP SCH (09:17)
[2023-08-16] MEDS: VITAMINS A AND D 56.7 GM TUBE TP SCH (21:48)
[2023-08-17] VITALS (13 sets, daily range): BP systolic 111–116; BP diastolic 71–74; TEMP 97.6–98.3; O2SAT 98–100
[2023-08-18] VITALS (14 sets, daily range): BP systolic 98–110; BP diastolic 57–71; TEMP 97.6–98.1; O2SAT 95–100
[2023-08-19] VITALS (12 sets, daily range): BP systolic 98–105; BP diastolic 66–69; TEMP 97.7–97.9; O2SAT 96–100
[2023-08-19] MEDS: chlorproMAZINE HCL 25 MG TABLET GT PRN (14:14)
[2023-08-20] VITALS (13 sets, daily range): BP systolic 98–105; BP diastolic 69–72; TEMP 97.9–98.2; O2SAT 97–100
[2023-08-21] VITALS (13 sets, daily range): BP systolic 97–106; BP diastolic 64–66; TEMP 97.5–98.2; O2SAT 97–100
[2023-08-22] VITALS (13 sets, daily range): BP systolic 113–123; BP diastolic 73–85; TEMP 97.7–98.4; O2SAT 98–100
[2023-08-23] VITALS (13 sets, daily range): BP systolic 104–107; BP diastolic 67–80; TEMP 97.5–98.4; O2SAT 98–100
[2023-08-24] VITALS (9 sets, daily range): BP systolic 96–109; BP diastolic 69–71; TEMP 97.4–97.5; O2SAT 97–100
[2023-08-25] VITALS (9 sets, daily range): BP systolic 95–102; BP diastolic 60–68; TEMP 97.9–98.2; O2SAT 95–100
[2023-08-26] VITALS (12 sets, daily range): BP systolic 98–126; BP diastolic 70–85; TEMP 97.6–97.9; O2SAT 98–100
[2023-08-27] VITALS (7 sets, daily range): BP systolic 104–129; BP diastolic 68–79; TEMP 97.6–97.9; O2SAT 97–99
[2023-08-28] VITALS (10 sets, daily range): BP systolic 99–106; BP diastolic 68–70; TEMP 97–97.6; O2SAT 99
[2023-08-29] VITALS (8 sets, daily range): BP systolic 110–129; BP diastolic 72–82; TEMP 97.9–98.6; O2SAT 99–100
[2023-08-30] VITALS (10 sets, daily range): BP systolic 113–115; BP diastolic 67–85; TEMP 98.2–98.8; O2SAT 98–100
[2023-08-31] VITALS (11 sets, daily range): BP systolic 102–113; BP diastolic 76; TEMP 98–98.8; O2SAT 97–99
[2023-09-01] VITALS (10 sets, daily range): BP systolic 102–156; BP diastolic 71–98; TEMP 98.1–98.8; O2SAT 98–99
[2023-09-02] VITALS (7 sets, daily range): BP systolic 109–119; BP diastolic 75–80; TEMP 98.2–98.5; O2SAT 98–100
[2023-09-03] VITALS (9 sets, daily range): BP systolic 102–129; BP diastolic 71–76; TEMP 98.2–98.6; O2SAT 97–100
[2023-09-04] VITALS (8 sets, daily range): BP systolic 115–126; BP diastolic 75–76; TEMP 98.1–98.2; O2SAT 98–100
[2023-09-05] VITALS (10 sets, daily range): BP systolic 113–124; BP diastolic 71–85; TEMP 98–98.8; O2SAT 99–100
[2023-09-05] MEDS: IPRATROPIUM NEB FS 0.5 MG/2.5 ML AMPUL.NEB NEB PRN (13:29)
[2023-09-05] MEDS: ALBUTEROL FS 2.5 MG/3 ML VIAL.NEB NEB PRN (13:30)
[2023-09-06] VITALS (11 sets, daily range): BP systolic 100–128; BP diastolic 74–80; TEMP 97.7–100; O2SAT 98–100
[2023-09-06] MEDS: ACETAMINOPHEN 650 MG/20.3 ML UDC GT PRN (13:34)
[2023-09-07] VITALS (8 sets, daily range): BP systolic 98–116; BP diastolic 57–91; TEMP 98.2; O2SAT 97–100
[2023-09-08] VITALS (12 sets, daily range): BP systolic 104–105; BP diastolic 70–81; TEMP 97.6–98.7; O2SAT 96–100
[2023-09-08] MEDS: ALBUTEROL FS 2.5 MG/3 ML VIAL.NEB NEB SCH (20:24)
[2023-09-08] MEDS: IPRATROPIUM NEB FS 0.5 MG/2.5 ML AMPUL.NEB NEB SCH (20:24)
[2023-09-09] VITALS (13 sets, daily range): BP systolic 105–128; BP diastolic 67–86; TEMP 97.7–98.8; O2SAT 98–100
[2023-09-09] MEDS: ALBUTEROL FS 2.5 MG/3 ML VIAL.NEB NEB SCH (19:40)
[2023-09-09] MEDS: IPRATROPIUM NEB FS 0.5 MG/2.5 ML AMPUL.NEB NEB SCH (19:40)
[2023-09-10] VITALS (12 sets, daily range): BP systolic 99–102; BP diastolic 60–65; TEMP 97.6–97.9; O2SAT 62–100
[2023-09-10] MEDS: chlorproMAZINE HCL 25 MG TABLET GT SCH (12:11)
[2023-09-11] VITALS (12 sets, daily range): BP systolic 96–122; BP diastolic 64–81; TEMP 98.4–99; O2SAT 68–100
[2023-09-11] MEDS: METOCLOPRAMIDE HCL 10 MG/2 ML VIAL IV SCH (17:00)
[2023-09-11] MEDS: GLYCOPYRROLATE 1 MG TABLET GT SCH (17:00)
[2023-09-12] VITALS (13 sets, daily range): BP systolic 105–112; BP diastolic 70–77; TEMP 98–98.3; O2SAT 95–100
[2023-09-13] VITALS (14 sets, daily range): BP systolic 102–106; BP diastolic 69–71; TEMP 97.5–97.9; O2SAT 97–100
[2023-09-13] MEDS: chlorproMAZINE HCL 25 MG TABLET GT SCH (17:20)
[2023-09-14] VITALS (13 sets, daily range): BP systolic 108–113; BP diastolic 66–73; TEMP 98–99; O2SAT 98–100
[2023-09-15] VITALS (11 sets, daily range): BP systolic 113; BP diastolic 71; TEMP 97.7; O2SAT 97–100
[2023-09-16] VITALS (12 sets, daily range): BP systolic 99–100; BP diastolic 65–66; TEMP 97.5–97.9; O2SAT 97–99
[2023-09-16] MEDS: chlorproMAZINE HCL 25 MG TABLET GT SCH ×2 (13:24→20:15)
[2023-09-17] VITALS (12 sets, daily range): BP systolic 103–120; BP diastolic 60–71; TEMP 97.9–98.4; O2SAT 95–100
[2023-09-17] MEDS: MAGNESIUM HYDROXIDE 30 ML UDC GT PRN (04:18)
[2023-09-18] VITALS (12 sets, daily range): BP systolic 114–147; BP diastolic 70–99; TEMP 97.7; O2SAT 96–99
[2023-09-18] MEDS: POLYETHYLENE GLYCOL 3350 17 GM POWD.PACK GT SCH (09:00)
[2023-09-19] VITALS (12 sets, daily range): BP systolic 100–103; BP diastolic 60–61; TEMP 97.7–98; O2SAT 97–100
[2023-09-20] VITALS (11 sets, daily range): BP systolic 107; BP diastolic 73; TEMP 98.1; O2SAT 97–100
[2023-09-21] VITALS (12 sets, daily range): BP systolic 100–112; BP diastolic 72–94; TEMP 97.6–98; O2SAT 97–100
[2023-09-22] VITALS (13 sets, daily range): BP systolic 110–117; BP diastolic 59–70; TEMP 97.9–98.1; O2SAT 97–100
[2023-09-23] VITALS (14 sets, daily range): BP systolic 97–112; BP diastolic 60–92; TEMP 97.2–98.2; O2SAT 97–100
[2023-09-24] VITALS (13 sets, daily range): BP systolic 93–111; BP diastolic 60–74; TEMP 98.2; O2SAT 96–100
[2023-09-25] VITALS (12 sets, daily range): BP systolic 120; BP diastolic 74; TEMP 98.1; O2SAT 97–100
[2023-09-26] VITALS (14 sets, daily range): BP systolic 100–105; BP diastolic 63–66; TEMP 98.1–99.4; O2SAT 97–100
[2023-09-27] VITALS (12 sets, daily range): BP systolic 99–114; BP diastolic 65–68; TEMP 97.5–98.1; O2SAT 96–100
[2023-09-27] MEDS: METOCLOPRAMIDE HCL 10 MG/10 ML UDC GT SCH (08:20)
[2023-09-27] MEDS: chlorproMAZINE HCL 25 MG TABLET GT SCH (14:00)
[2023-09-28] VITALS (13 sets, daily range): BP systolic 98–107; BP diastolic 70–72; TEMP 97.5–98.2; O2SAT 98–100
[2023-09-29] VITALS (13 sets, daily range): BP systolic 105–117; BP diastolic 70–80; TEMP 98.1–98.2; O2SAT 98–100
[2023-09-30] VITALS (12 sets, daily range): BP systolic 104–106; BP diastolic 60–78; TEMP 98.1; O2SAT 98–100
[2023-10-01] VITALS (13 sets, daily range): BP systolic 110–124; BP diastolic 77–84; TEMP 97.6–97.7; O2SAT 98–100
[2023-10-01] MEDS: METOCLOPRAMIDE HCL 10 MG TABLET GT SCH (09:12)
[2023-10-02] VITALS (12 sets, daily range): BP systolic 113–116; BP diastolic 73–76; TEMP 98.1; O2SAT 97–100
[2023-10-03] VITALS (12 sets, daily range): BP systolic 114–132; BP diastolic 74–80; TEMP 97.9–98.1; O2SAT 95–100
[2023-10-04] VITALS (14 sets, daily range): BP systolic 107–131; BP diastolic 69–81; TEMP 97.5–98.1; O2SAT 95–100
[2023-10-05] VITALS (12 sets, daily range): BP systolic 105–121; BP diastolic 61–79; TEMP 98.4–98.6; O2SAT 97–99
[2023-10-06] VITALS (12 sets, daily range): BP systolic 99; BP diastolic 63; TEMP 99.1; O2SAT 97–99
[2023-10-06] MEDS: GLYCOPYRROLATE 1 MG TABLET GT PRN (20:20)
[2023-10-07] VITALS (13 sets, daily range): BP systolic 102–113; BP diastolic 68–89; TEMP 98.1–99; O2SAT 95–99
[2023-10-07] MEDS: chlorproMAZINE HCL 25 MG TABLET PO ONE (10:10)
[2023-10-07] MEDS: chlorproMAZINE HCL 25 MG TABLET GT SCH (12:59)
[2023-10-08] VITALS (13 sets, daily range): BP systolic 98–113; BP diastolic 69–70; TEMP 97.7–98.1; O2SAT 96–99
[2023-10-09] VITALS (11 sets, daily range): BP systolic 97–128; BP diastolic 71–83; TEMP 97.8–98.2; O2SAT 95–100
[2023-10-10] VITALS (17 sets, daily range): BP systolic 100–104; BP diastolic 65–69; TEMP 97.9–102.7; O2SAT 95–100
[2023-10-10 09:57] LABS: BASOPHILS % (AUTO) 0.2 % (0.0-2.0); EOSINOPHILS % (AUTO) 0.2 % (0.0-6.0); HEMATOCRIT 39 % (39-51); HEMOGLOBIN 13.1 g/dL (13.5-17.5); LYMPHOCYTES % (AUTO) 10.8 % (20.0-44.0); MEAN CORPUSCULAR HEMOGLOBIN 30 PG (26.0-33.0); MEAN CORPUSCULAR HGB CONC 34 g/dl (31.0-36.0); MEAN CORPUSCULAR VOLUME 89 fL (80-96); MONOCYTES # (AUTO) 0.6 K/uL (0.1-1.30); MONOCYTES % (AUTO) 7.3 % (2.0-12.0); NEUTROPHILS # (AUTO) 7.2 K/uL (1.8-8.9); NEUTROPHILS % (AUTO) 81.5 % (43.0-81.0); PLATELET COUNT (AUTO) 285 K/uL (150-450); RED BLOOD CELL COUNT(AUTO) 4.39 MIL/uL (4.5-6.0); RED CELL DISTRIBUTION WIDTH 13.7 % (11.5-15.0); WHITE BLOOD COUNT (AUTO) 8.9 K/uL (4.3-11.0)
[2023-10-10 10:03] LABS: CALCIUM, SERUM 9.5 mg/dL (8.5-10.1); CREATININE 0.9 mg/dL (0.6-1.3); POTASSIUM 3.4 mmol/L (3.5-5.1)
[2023-10-10] MEDS: POTASSIUM CHLORIDE 20 MEQ POWDER PACKET NG SCH (15:38)
[2023-10-11] VITALS (13 sets, daily range): BP systolic 104–110; BP diastolic 67–75; TEMP 99.1–99.2; O2SAT 94–99
[2023-10-12] VITALS (13 sets, daily range): BP systolic 102–109; BP diastolic 70–86; TEMP 97.5–97.7; O2SAT 96–99
[2023-10-12] MEDS: MAG HYDROX/AL HYDROX/SIMETH 30 ML UDC GT PRN (17:35)
[2023-10-13] VITALS (13 sets, daily range): BP systolic 101–114; BP diastolic 61–75; TEMP 97.7–97.9; O2SAT 97–100
[2023-10-14] VITALS (11 sets, daily range): BP systolic 107–129; BP diastolic 75–80; TEMP 97.5–98.1; O2SAT 98–100
[2023-10-15] VITALS (15 sets, daily range): BP systolic 96–114; BP diastolic 74–82; TEMP 98.1–98.6; O2SAT 95–100
[2023-10-16] VITALS (11 sets, daily range): BP systolic 95–117; BP diastolic 62–79; TEMP 97.9–98; O2SAT 97–100
[2023-10-17] VITALS (12 sets, daily range): BP systolic 103–119; BP diastolic 72–86; TEMP 97.8–98.8; O2SAT 96–100
[2023-10-18] VITALS (14 sets, daily range): BP systolic 105–108; BP diastolic 70–76; TEMP 97.8–97.9; O2SAT 96–100
[2023-10-19] VITALS (13 sets, daily range): BP systolic 107–114; BP diastolic 68–74; TEMP 98.3–98.6; O2SAT 97–100
[2023-10-20] VITALS (12 sets, daily range): BP systolic 98–124; BP diastolic 65–68; TEMP 97.9–98.6; O2SAT 96–100
[2023-10-21] VITALS (12 sets, daily range): BP systolic 105–124; BP diastolic 63–77; TEMP 97.7–99; O2SAT 95–99
[2023-10-22] VITALS (14 sets, daily range): BP systolic 109–117; BP diastolic 70–74; TEMP 97.7–98.1; O2SAT 96–100
[2023-10-23] VITALS (10 sets, daily range): BP systolic 119–131; BP diastolic 80–87; TEMP 98.2–98.4; O2SAT 95–100
[2023-10-24] VITALS (14 sets, daily range): BP systolic 111; BP diastolic 79; TEMP 98.2; O2SAT 96–99
[2023-10-24] MEDS: chlorproMAZINE HCL 25 MG TABLET GT SCH (20:00)
[2023-10-25] VITALS (13 sets, daily range): BP systolic 98–107; BP diastolic 72–76; TEMP 97.7–97.9; O2SAT 97–100
[2023-10-26] VITALS (13 sets, daily range): BP systolic 109–112; BP diastolic 66–75; TEMP 98–98.4; O2SAT 97–100
[2023-10-27] VITALS (15 sets, daily range): BP systolic 113–123; BP diastolic 68–84; TEMP 98.3–99.1; O2SAT 96–100
[2023-10-28] VITALS (14 sets, daily range): BP systolic 100–114; BP diastolic 63–74; TEMP 97.9–99.2; O2SAT 96–100
[2023-10-29] VITALS (12 sets, daily range): BP systolic 102; BP diastolic 70; TEMP 98.1; O2SAT 98–99
[2023-10-29] MEDS: TWOCAL HN 1,000 ML LIQUID GT PRN (09:52)
[2023-10-29] MEDS: chlorproMAZINE HCL 25 MG TABLET GT SCH (12:30)
[2023-10-30] VITALS (14 sets, daily range): BP systolic 99–103; BP diastolic 59–86; TEMP 97.7–98.2; O2SAT 97–100
[2023-10-30] MEDS: ONDANSETRON HCL 4 MG/5 ML SOLUTION GT PRN (00:53)
[2023-10-31] VITALS (14 sets, daily range): BP systolic 108–113; BP diastolic 68–71; TEMP 97.9; O2SAT 96–100
[2023-11-01] VITALS (14 sets, daily range): BP systolic 108–110; BP diastolic 68–78; TEMP 97.5–98.1; O2SAT 97–100
[2023-11-02] VITALS (15 sets, daily range): BP systolic 99–123; BP diastolic 61–68; TEMP 97.6–98.1; O2SAT 96–99
[2023-11-03] VITALS (14 sets, daily range): BP systolic 97–118; BP diastolic 63–71; TEMP 97.9–98.1; O2SAT 95–100
[2023-11-04] VITALS (14 sets, daily range): BP systolic 109–123; BP diastolic 70–79; TEMP 97.3–97.5; O2SAT 97–100
[2023-11-05] VITALS (16 sets, daily range): BP systolic 108–114; BP diastolic 65–83; TEMP 97.9–98.2; O2SAT 66–100
[2023-11-06] VITALS (12 sets, daily range): BP systolic 113; BP diastolic 73–90; TEMP 98.1–98.7; O2SAT 96–98
[2023-11-07] VITALS (15 sets, daily range): BP systolic 117; BP diastolic 74; TEMP 98.6; O2SAT 96–100
[2023-11-08] VITALS (13 sets, daily range): BP systolic 104–110; BP diastolic 70–72; TEMP 98.2–98.4; O2SAT 97–100
[2023-11-09] VITALS (15 sets, daily range): BP systolic 110–111; BP diastolic 69–75; TEMP 97.9–98.1; O2SAT 96–99
[2023-11-10] VITALS (13 sets, daily range): BP systolic 108–118; BP diastolic 65–83; TEMP 97.7–97.9; O2SAT 97–100
[2023-11-11] VITALS (13 sets, daily range): BP systolic 110–132; BP diastolic 69–98; TEMP 97.3–99.3; O2SAT 97–100
[2023-11-11] MEDS: chlorproMAZINE HCL 25 MG TABLET GT SCH (21:22)
[2023-11-12] VITALS (15 sets, daily range): BP systolic 99–132; BP diastolic 64–98; TEMP 97.7–99.3; O2SAT 94–100
[2023-11-13] VITALS (14 sets, daily range): BP systolic 109–110; BP diastolic 69–86; TEMP 99–100.2; O2SAT 96–100
[2023-11-14] VITALS (15 sets, daily range): BP systolic 111–121; BP diastolic 65–95; TEMP 98.6–99.5; O2SAT 97–100
[2023-11-14 14:09] LABS: BASOPHILS % (AUTO) 0.4 % (0.0-2.0); EOSINOPHILS % (AUTO) 0.1 % (0.0-6.0); HEMATOCRIT 39 % (39-51); HEMOGLOBIN 13.2 g/dL (13.5-17.5); LYMPHOCYTES # (AUTO) 0.8 K/uL (0.8-4.8); LYMPHOCYTES % (AUTO) 10.8 % (20.0-44.0); MEAN CORPUSCULAR HEMOGLOBIN 29 PG (26.0-33.0); MEAN CORPUSCULAR HGB CONC 34 g/dl (31.0-36.0); MEAN CORPUSCULAR VOLUME 87 fL (80-96); MONOCYTES # (AUTO) 0.6 K/uL (0.1-1.30); MONOCYTES % (AUTO) 7.9 % (2.0-12.0); NEUTROPHILS # (AUTO) 6.1 K/uL (1.8-8.9); NEUTROPHILS % (AUTO) 80.8 % (43.0-81.0); PLATELET COUNT (AUTO) 213 K/uL (150-450); RED BLOOD CELL COUNT(AUTO) 4.49 MIL/uL (4.5-6.0); RED CELL DISTRIBUTION WIDTH 14.3 % (11.5-15.0); WHITE BLOOD COUNT (AUTO) 7.5 K/uL (4.3-11.0)
[2023-11-14 14:16] LABS: APPEARANCE,URINE CLEAR (CLEAR); BILIRUBIN,URINE NEGATIVE (NEGATIVE); BLOOD, URINE NEGATIVE Ery/uL (NEGATIVE); COLOR,URINE YELLOW (YELLOW); KETONES,URINE NEGATIVE (NEGATIVE); LEUKOCYTE ESTERASE ,URINE NEGATIVE (NEGATIVE); NITRITE, URINE NEGATIVE (NEGATIVE); PROTEIN,URINE 1+ mg/dl (NEGATIVE); UGLUCOSE NEGATIVE (NEGATIVE); UROBILINOGEN,URINE 0.2 EU/dL (0.2)
[2023-11-14 14:31] LABS: ALBUMIN 3.5 g/dL (3.4-5.0); BILIRUBIN,TOTAL 0.5 mg/dL (0.2-1.0); CALCIUM, SERUM 9.4 mg/dL (8.5-10.1); CREATININE 1.1 mg/dL (0.6-1.3); POTASSIUM 3.3 mmol/L (3.5-5.1); TOTAL PROTEIN, SERUM 8.2 g/dL (6.4-8.2)
[2023-11-14] MEDS: PIPERACILLIN /TAZOBACTAM 3.375 G in IV D5W 100 ML IV SCH (16:36)
[2023-11-14 17:51] LABS: ADD URINE CULTURE NO; BACTERIA,URINE None seen /HPF (None Seen); RBC,URINE 0-2 /HPF (0-2); WBC,URINE 0-2 /HPF (0-3)
[2023-11-14 17:52] LABS: HYALINE CASTS, URINE Few /LPF (None Seen); MUCUS,URINE Few /LPF (None Seen)
[2023-11-15] VITALS (11 sets, daily range): BP systolic 89–102; BP diastolic 61–72; TEMP 98.1–98.2; O2SAT 96–100
[2023-11-16] VITALS (12 sets, daily range): BP systolic 93–105; BP diastolic 58–65; TEMP 97.8–99.1; O2SAT 97–100
[2023-11-17] VITALS (15 sets, daily range): BP systolic 110–123; BP diastolic 76–90; TEMP 98.8–99.3; O2SAT 97–99
[2023-11-17] MEDS: GLYCOPYRROLATE 1 MG TABLET GT SCH (21:00)
[2023-11-18] VITALS (14 sets, daily range): BP systolic 107–127; BP diastolic 75–88; TEMP 98.1–98.2; O2SAT 96–98
[2023-11-19] VITALS (15 sets, daily range): BP systolic 108–110; BP diastolic 76–83; TEMP 97.7; O2SAT 97–100
[2023-11-19] MEDS: GUAIFENESIN 300 MG/15 ML UDC GT PRN (22:42)
[2023-11-20] VITALS (13 sets, daily range): BP systolic 98–100; BP diastolic 68–75; TEMP 98.1–98.4; O2SAT 97–100
[2023-11-21] VITALS (11 sets, daily range): BP systolic 109–111; BP diastolic 79–81; TEMP 97.5–97.7; O2SAT 98–100
[2023-11-22] VITALS (14 sets, daily range): BP systolic 105; BP diastolic 75–78; TEMP 97.9–98; O2SAT 99–100
[2023-11-23] VITALS (15 sets, daily range): BP systolic 97–110; BP diastolic 62–70; TEMP 97.7–98.1; O2SAT 95–100
[2023-11-24] VITALS (14 sets, daily range): BP systolic 103–118; BP diastolic 67–72; TEMP 97.7–98.6; O2SAT 96–100
[2023-11-25] VITALS (14 sets, daily range): BP systolic 103–109; BP diastolic 64–69; TEMP 98–98.1; O2SAT 97–100
[2023-11-26] VITALS (13 sets, daily range): BP systolic 102–150; BP diastolic 62–70; TEMP 98.1; O2SAT 98–100
[2023-11-26] MEDS: BISACODYL SUPP (10 MG) 10 MG/SUPP.RECT SUPP.RECT RC PRN (18:08)
[2023-11-27] VITALS (15 sets, daily range): BP systolic 112–132; BP diastolic 60–85; TEMP 97.5–97.9; O2SAT 97–100
[2023-11-28] VITALS (14 sets, daily range): BP systolic 103–111; BP diastolic 69–74; TEMP 97.5–98.1; O2SAT 98–100
[2023-11-28] MEDS: TWOCAL HN 1,000 ML LIQUID GT PRN (04:33)
[2023-11-29] VITALS (13 sets, daily range): BP systolic 101–111; BP diastolic 64–80; TEMP 97.2–98.5; O2SAT 95–100
[2023-11-30] VITALS (14 sets, daily range): BP systolic 110–134; BP diastolic 72; TEMP 97.9–98.8; O2SAT 97–99
[2023-12-01] VITALS (13 sets, daily range): BP systolic 100–116; BP diastolic 64–88; TEMP 97.6–98.1; O2SAT 98–100
[2023-12-02] VITALS (14 sets, daily range): BP systolic 102–106; BP diastolic 68–88; TEMP 97.9–98.2; O2SAT 96–100
[2023-12-03] VITALS (15 sets, daily range): BP systolic 109–117; BP diastolic 70–74; TEMP 98.3–99; O2SAT 98–100
[2023-12-04] VITALS (13 sets, daily range): BP systolic 111–112; BP diastolic 71–77; TEMP 98.1–99.1; O2SAT 98–100
[2023-12-05] VITALS (13 sets, daily range): BP systolic 104–109; BP diastolic 69–74; TEMP 97.5–97.9; O2SAT 98–100
[2023-12-06] VITALS (14 sets, daily range): BP systolic 98–104; BP diastolic 61–78; TEMP 97.7–98.3; O2SAT 96–100
[2023-12-07] VITALS (13 sets, daily range): BP systolic 131; BP diastolic 70; TEMP 98.2; O2SAT 96–100
[2023-12-08] VITALS (14 sets, daily range): BP systolic 94–127; BP diastolic 61–71; TEMP 98; O2SAT 97–100
[2023-12-09] VITALS (11 sets, daily range): BP systolic 97–98; BP diastolic 66–71; TEMP 98.4–98.6; O2SAT 94–100
[2023-12-09 18:57] LABS: BASOPHILS % (AUTO) 0.5 % (0.0-2.0); EOSINOPHILS # (AUTO) 0.1 K/uL (0.0-0.7); HEMATOCRIT 37 % (39-51); HEMOGLOBIN 12.4 g/dL (13.5-17.5); LYMPHOCYTES # (AUTO) 1.9 K/uL (0.8-4.8); LYMPHOCYTES % (AUTO) 37.9 % (20.0-44.0); MEAN CORPUSCULAR HEMOGLOBIN 29 PG (26.0-33.0); MEAN CORPUSCULAR HGB CONC 34 g/dl (31.0-36.0); MEAN CORPUSCULAR VOLUME 86 fL (80-96); MONOCYTES # (AUTO) 0.4 K/uL (0.1-1.30); MONOCYTES % (AUTO) 8.1 % (2.0-12.0); NEUTROPHILS # (AUTO) 2.5 K/uL (1.8-8.9); NEUTROPHILS % (AUTO) 50.5 % (43.0-81.0); PLATELET COUNT (AUTO) 249 K/uL (150-450); RED BLOOD CELL COUNT(AUTO) 4.26 MIL/uL (4.5-6.0); RED CELL DISTRIBUTION WIDTH 14.8 % (11.5-15.0); WHITE BLOOD COUNT (AUTO) 4.9 K/uL (4.3-11.0)
[2023-12-09 19:20] LABS: CALCIUM, SERUM 9.6 mg/dL (8.5-10.1); CREATININE 0.7 mg/dL (0.6-1.3); POTASSIUM 3.3 mmol/L (3.5-5.1)
[2023-12-10] VITALS (17 sets, daily range): BP systolic 109–127; BP diastolic 73–89; TEMP 97.9–98.4; O2SAT 98–100
[2023-12-11] VITALS (15 sets, daily range): BP systolic 119–130; BP diastolic 81–93; TEMP 97.4–98.6; O2SAT 98–100
[2023-12-12] VITALS (14 sets, daily range): BP systolic 131–135; BP diastolic 62–81; TEMP 97.5–98.2; O2SAT 99–100
[2023-12-13] VITALS (12 sets, daily range): BP systolic 126–131; BP diastolic 62–79; TEMP 97.5–98.6; O2SAT 96–100
[2023-12-14] VITALS (14 sets, daily range): BP systolic 107–119; BP diastolic 74–79; TEMP 97.5–98; O2SAT 96–100
[2023-12-15] VITALS (15 sets, daily range): BP systolic 122–124; BP diastolic 79–83; TEMP 98.1; O2SAT 98–100
[2023-12-16] VITALS (14 sets, daily range): BP systolic 118–136; BP diastolic 75–88; TEMP 97.9; O2SAT 98–100
[2023-12-17] VITALS (13 sets, daily range): BP systolic 110–119; BP diastolic 67–76; TEMP 98–98.2; O2SAT 98–100
[2023-12-18] VITALS (16 sets, daily range): BP systolic 110–122; BP diastolic 69–71; TEMP 97.8–97.9; O2SAT 97–100
[2023-12-19] VITALS (13 sets, daily range): BP systolic 106–116; BP diastolic 75–78; TEMP 97.9–98.6; O2SAT 98–100
[2023-12-20] VITALS (13 sets, daily range): BP systolic 102–117; BP diastolic 71–86; TEMP 97.6–97.7; O2SAT 98–99
[2023-12-21] VITALS (14 sets, daily range): BP systolic 103–115; BP diastolic 79–80; TEMP 97.9–98.4; O2SAT 98–99
[2023-12-22] VITALS (16 sets, daily range): BP systolic 107–121; BP diastolic 76–93; TEMP 97.8–98; O2SAT 95–99
[2023-12-22] MEDS: GUAIFENESIN 300 MG/15 ML UDC GT SCH (20:37)
[2023-12-23] VITALS (12 sets, daily range): BP systolic 101–117; BP diastolic 72; TEMP 98.2; O2SAT 96–100
[2023-12-23] MEDS: PROPRANOLOL HCL 10 MG TABLET PO SCH (20:55)
[2023-12-24] VITALS (15 sets, daily range): BP systolic 110–133; BP diastolic 67–92; TEMP 98.6; O2SAT 99–100
[2023-12-25] VITALS (13 sets, daily range): BP systolic 110–136; BP diastolic 82–96; TEMP 97.9–98.1; O2SAT 99–100
[2023-12-25] MEDS: TUBERCULIN,PURIF.PROT.DERIV. 5 TU/0.1 ML VIAL ID SCH (11:00)
[2023-12-26] VITALS (15 sets, daily range): BP systolic 103–127; BP diastolic 85–88; TEMP 97.9–98.8; O2SAT 97–100
[2023-12-26] MEDS: PROPRANOLOL HCL 10 MG TABLET PO SCH (09:00)
[2023-12-27] VITALS (15 sets, daily range): BP systolic 116–129; BP diastolic 76–92; TEMP 98.2–98.3; O2SAT 96–100
[2023-12-28] VITALS (13 sets, daily range): BP systolic 97–104; BP diastolic 77; TEMP 97.9–98.4; O2SAT 98–100
[2023-12-29] VITALS (11 sets, daily range): BP systolic 103; BP diastolic 68; TEMP 97.3; O2SAT 98–100
[2023-12-30] VITALS (16 sets, daily range): BP systolic 116–130; BP diastolic 78–89; TEMP 97.5–98.1; O2SAT 97–100
[2023-12-31] VITALS (14 sets, daily range): BP systolic 100–127; BP diastolic 70–72; TEMP 98–98.6; O2SAT 96–100
[2023-12-31] MEDS: BISACODYL SUPP (10 MG) 10 MG/SUPP.RECT SUPP.RECT RC PRN (07:00)
[2024-01-01] VITALS (12 sets, daily range): BP systolic 117; BP diastolic 79; TEMP 98.3; O2SAT 98–100
[2024-01-02] VITALS (14 sets, daily range): BP systolic 98–117; BP diastolic 75–82; TEMP 98–98.1; O2SAT 98–100
[2024-01-02 09:28] LABS: CALCIUM, SERUM 9.5 mg/dL (8.5-10.1); CREATININE 0.6 mg/dL (0.6-1.3); POTASSIUM 4.3 mmol/L (3.5-5.1)
[2024-01-02 15:33] LABS: BASOPHILS % (AUTO) 0.7 % (0.0-2.0); EOSINOPHILS # (AUTO) 0.1 K/uL (0.0-0.7); EOSINOPHILS % (AUTO) 2.6 % (0.0-6.0); HEMATOCRIT 41 % (39-51); HEMOGLOBIN 13.8 g/dL (13.5-17.5); LYMPHOCYTES # (AUTO) 1.1 K/uL (0.8-4.8); LYMPHOCYTES % (AUTO) 33.1 % (20.0-44.0); MEAN CORPUSCULAR HEMOGLOBIN 29 PG (26.0-33.0); MEAN CORPUSCULAR HGB CONC 33 g/dl (31.0-36.0); MEAN CORPUSCULAR VOLUME 88 fL (80-96); MONOCYTES # (AUTO) 0.3 K/uL (0.1-1.30); MONOCYTES % (AUTO) 7.9 % (2.0-12.0); NEUTROPHILS # (AUTO) 1.9 K/uL (1.8-8.9); NEUTROPHILS % (AUTO) 55.7 % (43.0-81.0); PLATELET COUNT (AUTO) 283 K/uL (150-450); RED BLOOD CELL COUNT(AUTO) 4.72 MIL/uL (4.5-6.0); RED CELL DISTRIBUTION WIDTH 15.1 % (11.5-15.0); WHITE BLOOD COUNT (AUTO) 3.4 K/uL (4.3-11.0)
[2024-01-03] VITALS (12 sets, daily range): BP systolic 117; BP diastolic 79; TEMP 98; O2SAT 98–100
[2024-01-04] VITALS (14 sets, daily range): BP systolic 112–114; BP diastolic 64–86; TEMP 97.7–97.9; O2SAT 97–100
[2024-01-05] VITALS (13 sets, daily range): BP systolic 112–118; BP diastolic 74–90; TEMP 97.9–98.8; O2SAT 20–100
[2024-01-05] MEDS: GUAIFENESIN 300 MG/15 ML UDC GT PRN (21:07)
[2024-01-06] VITALS (13 sets, daily range): BP systolic 114; BP diastolic 74; TEMP 97.7; O2SAT 98–100
[2024-01-07] VITALS (13 sets, daily range): BP systolic 107–113; BP diastolic 72–80; TEMP 99.7–99.8; O2SAT 97–100
[2024-01-07] MEDS: LIDOCAINE VISCOUS 2% UD 15 ML UDC MM SCH (16:08)
[2024-01-08] VITALS (16 sets, daily range): BP systolic 103–112; BP diastolic 72–76; TEMP 97.9–98.6; O2SAT 98–100
[2024-01-09] VITALS (13 sets, daily range): BP systolic 101–112; BP diastolic 68–79; TEMP 98.2–98.6; O2SAT 97–100
[2024-01-10] VITALS (13 sets, daily range): BP systolic 112–122; BP diastolic 81–85; TEMP 97.9–98.2; O2SAT 98–100
[2024-01-11] VITALS (15 sets, daily range): BP systolic 107–118; BP diastolic 71–99; TEMP 98.1–98.4; O2SAT 98–100
[2024-01-12] VITALS (13 sets, daily range): BP systolic 108–122; BP diastolic 75–87; TEMP 97.9–98.4; O2SAT 97–100
[2024-01-13] VITALS (15 sets, daily range): BP systolic 97–117; BP diastolic 70–80; TEMP 97.7–97.9; O2SAT 96–100
[2024-01-14] VITALS (12 sets, daily range): BP systolic 111–122; BP diastolic 67–69; TEMP 97.7–98.2; O2SAT 99–100
[2024-01-15] VITALS (13 sets, daily range): BP systolic 108–116; BP diastolic 72–82; TEMP 97.7–98.2; O2SAT 99–100
[2024-01-16] VITALS (13 sets, daily range): BP systolic 102–122; BP diastolic 69–75; TEMP 97.9–98.4; O2SAT 98–100
[2024-01-16 19:57] LABS: CALCIUM, SERUM 9.7 mg/dL (8.5-10.1); CREATININE 0.6 mg/dL (0.6-1.3); POTASSIUM 4.5 mmol/L (3.5-5.1)
[2024-01-16] MEDS: IV NS 0.9% 1,000 ML IV PRN (20:00)
[2024-01-17] VITALS (13 sets, daily range): BP systolic 115–123; BP diastolic 75–84; TEMP 97.5–97.9; O2SAT 98–100
[2024-01-17] MEDS: IV 1/2NS 1000 ML 1,000 ML IV PRN (12:00)
[2024-01-18] VITALS (12 sets, daily range): BP systolic 100–106; BP diastolic 70–86; TEMP 97.6–99; O2SAT 98–100
[2024-01-19] VITALS (16 sets, daily range): BP systolic 90–134; BP diastolic 67–75; TEMP 97.5–98.1; O2SAT 97–100
[2024-01-20] VITALS (14 sets, daily range): BP systolic 108–125; BP diastolic 72–74; TEMP 97.3–98.2; O2SAT 97–100
[2024-01-21] VITALS (12 sets, daily range): BP systolic 100–121; BP diastolic 70–72; TEMP 97.9–99.3; O2SAT 96–100
[2024-01-21] MEDS: LIDOCAINE VISCOUS 2% UD 15 ML UDC MM PRN (08:04)
[2024-01-22] VITALS (13 sets, daily range): BP systolic 108–127; BP diastolic 74–81; TEMP 97.9–98.2; O2SAT 98–100
[2024-01-23] VITALS (14 sets, daily range): BP systolic 104–117; BP diastolic 86; TEMP 98.6–99.1; O2SAT 97–100
[2024-01-24] VITALS (14 sets, daily range): BP systolic 102–117; BP diastolic 70–85; TEMP 98.1–98.5; O2SAT 97–100
[2024-01-25] VITALS (12 sets, daily range): BP systolic 100; BP diastolic 63; TEMP 97.5; O2SAT 98–100
[2024-01-26] VITALS (13 sets, daily range): BP systolic 104–107; BP diastolic 72–74; TEMP 97.9–98.6; O2SAT 98–100
[2024-01-27] VITALS (12 sets, daily range): BP systolic 99–109; BP diastolic 65–79; TEMP 97.9–99.3; O2SAT 98–100
[2024-01-28] VITALS (12 sets, daily range): BP systolic 109; BP diastolic 74; TEMP 98.2; O2SAT 98–99
[2024-01-29] VITALS (12 sets, daily range): BP systolic 103–112; BP diastolic 72–74; TEMP 98–98.1; O2SAT 98–100
[2024-01-30] VITALS (13 sets, daily range): BP systolic 100–102; BP diastolic 65–67; TEMP 97.7–98.1; O2SAT 96–100
[2024-01-31] VITALS (13 sets, daily range): BP systolic 105–109; BP diastolic 63–71; TEMP 98–98.4; O2SAT 96–100
[2024-02-01] VITALS (14 sets, daily range): BP systolic 99–132; BP diastolic 62–72; TEMP 98.2–98.3; O2SAT 97–100
[2024-02-02] VITALS (15 sets, daily range): BP systolic 106–113; BP diastolic 65–73; TEMP 97.3–97.9; O2SAT 95–100
[2024-02-03] VITALS (12 sets, daily range): BP systolic 109–111; BP diastolic 68–73; TEMP 98.1–98.2; O2SAT 96–100
[2024-02-04] VITALS (11 sets, daily range): BP systolic 107; BP diastolic 81; TEMP 99.1; O2SAT 97–100
[2024-02-05] VITALS (12 sets, daily range): BP systolic 105–108; BP diastolic 63–79; TEMP 98.8–99.7; O2SAT 96–99
[2024-02-06] VITALS (13 sets, daily range): BP systolic 95–98; BP diastolic 68–74; TEMP 97.4–97.7; O2SAT 97–100
[2024-02-07] VITALS (12 sets, daily range): BP systolic 107–123; BP diastolic 75–79; TEMP 97.7–98.2; O2SAT 97–100
[2024-02-08] VITALS (14 sets, daily range): BP systolic 99–135; BP diastolic 73–75; TEMP 98.6–98.8; O2SAT 96–100
[2024-02-09] VITALS (12 sets, daily range): BP systolic 108–134; BP diastolic 64–87; TEMP 97.7–99.1; O2SAT 95–100
[2024-02-10] VITALS (11 sets, daily range): BP systolic 105–113; BP diastolic 79–83; TEMP 98.1–98.4; O2SAT 97–100
[2024-02-10] MEDS: TWOCAL HN 1,000 ML LIQUID GT PRN (05:24)
[2024-02-10] MEDS: chlorproMAZINE HCL 25 MG TABLET GT SCH (18:03)
[2024-02-11] VITALS (12 sets, daily range): BP systolic 102–114; BP diastolic 67–84; TEMP 97.7–98.2; O2SAT 97–100
[2024-02-12] VITALS (12 sets, daily range): BP systolic 104–119; BP diastolic 78–80; TEMP 97.5–98; O2SAT 97–99
[2024-02-13] VITALS (12 sets, daily range): BP systolic 112–116; BP diastolic 79–80; TEMP 98–98.2; O2SAT 98–100
[2024-02-13] MEDS: chlorproMAZINE HCL 25 MG TABLET PO SCH (21:13)
[2024-02-14] VITALS (13 sets, daily range): BP systolic 99–128; BP diastolic 77–80; TEMP 99–99.5; O2SAT 92–100
[2024-02-15] VITALS (12 sets, daily range): BP systolic 98–115; BP diastolic 72–78; TEMP 98.2–98.4; O2SAT 98–100
[2024-02-15 13:02] LABS: CALCIUM, SERUM 9.5 mg/dL (8.5-10.1); CREATININE 0.6 mg/dL (0.6-1.3)
[2024-02-16] VITALS (13 sets, daily range): BP systolic 104–116; BP diastolic 73–74; TEMP 98.1–98.8; O2SAT 98–100
[2024-02-17] VITALS (13 sets, daily range): BP systolic 106–107; BP diastolic 79–88; TEMP 98–98.2; O2SAT 98–100
[2024-02-18] VITALS (13 sets, daily range): BP systolic 107–108; BP diastolic 80–85; TEMP 97.7–98.6; O2SAT 97–100
[2024-02-19] VITALS (13 sets, daily range): BP systolic 103–106; BP diastolic 75–76; TEMP 97.9–98.1; O2SAT 97–100
[2024-02-20] VITALS (13 sets, daily range): BP systolic 100; BP diastolic 71; TEMP 98.4; O2SAT 99–100
[2024-02-21] VITALS (13 sets, daily range): BP systolic 110; BP diastolic 85; TEMP 98.2; O2SAT 98–100
[2024-02-22] VITALS (13 sets, daily range): BP systolic 108–113; BP diastolic 73–80; TEMP 98.2–98.6; O2SAT 97–100
[2024-02-23] VITALS (13 sets, daily range): BP systolic 102–123; BP diastolic 78–89; TEMP 97.9–98.2; O2SAT 94–99
[2024-02-24] VITALS (13 sets, daily range): BP systolic 104–106; BP diastolic 64–80; TEMP 97.9; O2SAT 97–100
[2024-02-25] VITALS (13 sets, daily range): BP systolic 90–116; BP diastolic 69–78; TEMP 97.7–97.9; O2SAT 94–100
[2024-02-26] VITALS (13 sets, daily range): BP systolic 100–109; BP diastolic 76–79; TEMP 98.1–98.6; O2SAT 97–99
[2024-02-27] VITALS (13 sets, daily range): BP systolic 106–118; BP diastolic 77–84; TEMP 98.1–98.2; O2SAT 95–99
[2024-02-28] VITALS (15 sets, daily range): BP systolic 114–120; BP diastolic 70–88; TEMP 98.7–98.8; O2SAT 96–99
[2024-02-29] VITALS (13 sets, daily range): BP systolic 128; BP diastolic 70; TEMP 99.9; O2SAT 94–100
[2024-03-01] VITALS (11 sets, daily range): BP systolic 101; BP diastolic 77; TEMP 98.6; O2SAT 96–100
[2024-03-02] VITALS (12 sets, daily range): BP systolic 113–120; BP diastolic 75–79; TEMP 97.9–98.1; O2SAT 95–100
[2024-03-03] VITALS (13 sets, daily range): BP systolic 110–114; BP diastolic 84–89; TEMP 97.9–99; O2SAT 98–100
[2024-03-04] VITALS (13 sets, daily range): BP systolic 108–110; BP diastolic 64–72; TEMP 97.9–98.1; O2SAT 98–100
[2024-03-05] VITALS (11 sets, daily range): BP systolic 107–109; BP diastolic 70–82; TEMP 97.7–98; O2SAT 95–100
[2024-03-06] VITALS (13 sets, daily range): BP systolic 99–104; BP diastolic 76–78; TEMP 97.9–98.1; O2SAT 97–100
[2024-03-07] VITALS (13 sets, daily range): BP systolic 98–107; BP diastolic 71–72; TEMP 97.9–98; O2SAT 98–100
[2024-03-08] VITALS (11 sets, daily range): BP systolic 98–108; BP diastolic 70–75; TEMP 97.9–98.4; O2SAT 98–100
[2024-03-09] VITALS (12 sets, daily range): BP systolic 97–110; BP diastolic 65; TEMP 97.9–98.4; O2SAT 97–100
[2024-03-10] VITALS (13 sets, daily range): BP systolic 104–121; BP diastolic 82–83; TEMP 97.9–98.1; O2SAT 97–100
[2024-03-11] VITALS (12 sets, daily range): BP systolic 107–110; BP diastolic 71–85; TEMP 97.5–98; O2SAT 98–99
[2024-03-12] VITALS (13 sets, daily range): BP systolic 100–106; BP diastolic 65–78; TEMP 98.8; O2SAT 97–99
[2024-03-13] VITALS (13 sets, daily range): BP systolic 98–104; BP diastolic 59–77; TEMP 98.2; O2SAT 97–100
[2024-03-14] VITALS (12 sets, daily range): BP systolic 99–108; BP diastolic 68; TEMP 98.2–98.6; O2SAT 97–100
[2024-03-15] VITALS (13 sets, daily range): BP systolic 96–110; BP diastolic 60–65; TEMP 97.9–98.2; O2SAT 97–100
[2024-03-16] VITALS (14 sets, daily range): BP systolic 105–108; BP diastolic 67–78; TEMP 98.6–99.1; O2SAT 97–100
[2024-03-17] VITALS (13 sets, daily range): BP systolic 101–108; BP diastolic 83–85; TEMP 97.7–98.4; O2SAT 10–100
[2024-03-17] MEDS: LEVETIRACETAM SOL (5 ML) 100 MG/ML UDC GT SCH (20:14)
[2024-03-18] VITALS (12 sets, daily range): BP systolic 96–100; BP diastolic 69–78; TEMP 97.7–98.2; O2SAT 97–100
[2024-03-18] MEDS: PROPRANOLOL HCL 10 MG TABLET GT SCH (09:00)
[2024-03-18] MEDS: chlorproMAZINE HCL 25 MG TABLET GT SCH (13:13)
[2024-03-19] VITALS (11 sets, daily range): BP systolic 99; BP diastolic 80; TEMP 97.9; O2SAT 95–100
[2024-03-20] VITALS (15 sets, daily range): BP systolic 108–121; BP diastolic 74–76; TEMP 97.7–98.4; O2SAT 96–99
[2024-03-21] VITALS (13 sets, daily range): BP systolic 103–107; BP diastolic 76–77; TEMP 98.2–98.3; O2SAT 98–100
[2024-03-22] VITALS (13 sets, daily range): BP systolic 107–112; BP diastolic 77–80; TEMP 98.1–98.3; O2SAT 96–100
[2024-03-23] VITALS (15 sets, daily range): BP systolic 108–110; BP diastolic 79; TEMP 97.3–98; O2SAT 98–100
[2024-03-23] MEDS: FAMOTIDINE 40 MG/5 ML GT SCH (05:26)
[2024-03-24] VITALS (13 sets, daily range): BP systolic 100; BP diastolic 66–76; TEMP 98.2–98.3; O2SAT 98–100
[2024-03-25] VITALS (13 sets, daily range): BP systolic 103; BP diastolic 67; TEMP 97.5; O2SAT 97–100
[2024-03-26] VITALS (13 sets, daily range): BP systolic 99–103; BP diastolic 77; TEMP 98.1; O2SAT 98–100
[2024-03-27] VITALS (10 sets, daily range): BP systolic 102; BP diastolic 77; TEMP 97.7; O2SAT 95–100
[2024-03-28] VITALS (11 sets, daily range): BP systolic 105; BP diastolic 81; TEMP 97.3; O2SAT 97–100
[2024-03-29] VITALS (12 sets, daily range): BP systolic 96–108; BP diastolic 66–70; TEMP 97.7–98.1; O2SAT 98–100
[2024-03-30] VITALS (12 sets, daily range): BP systolic 102–113; BP diastolic 86–87; TEMP 98.5–98.8; O2SAT 96–100
[2024-03-30 07:33] LABS: BASOPHILS % (AUTO) 0.8 % (0.0-2.0); EOSINOPHILS # (AUTO) 0.1 K/uL (0.0-0.7); EOSINOPHILS % (AUTO) 3.9 % (0.0-6.0); HEMATOCRIT 39 % (39-51); HEMOGLOBIN 12.6 g/dL (13.5-17.5); LYMPHOCYTES # (AUTO) 1.1 K/uL (0.8-4.8); LYMPHOCYTES % (AUTO) 32.8 % (20.0-44.0); MEAN CORPUSCULAR HEMOGLOBIN 29 PG (26.0-33.0); MEAN CORPUSCULAR HGB CONC 33 g/dl (31.0-36.0); MEAN CORPUSCULAR VOLUME 87 fL (80-96); MONOCYTES # (AUTO) 0.2 K/uL (0.1-1.30); NEUTROPHILS # (AUTO) 1.9 K/uL (1.8-8.9); NEUTROPHILS % (AUTO) 55.5 % (43.0-81.0); PLATELET COUNT (AUTO) 243 K/uL (150-450); RED BLOOD CELL COUNT(AUTO) 4.43 MIL/uL (4.5-6.0); RED CELL DISTRIBUTION WIDTH 15.2 % (11.5-15.0); WHITE BLOOD COUNT (AUTO) 3.4 K/uL (4.3-11.0)
[2024-03-30 07:42] LABS: CALCIUM, SERUM 9.5 mg/dL (8.5-10.1); CREATININE 0.6 mg/dL (0.6-1.3); POTASSIUM 3.9 mmol/L (3.5-5.1)
[2024-03-31] VITALS (12 sets, daily range): BP systolic 104–105; BP diastolic 63–74; TEMP 97.7–99.1; O2SAT 96–100
[2024-04-01] VITALS (14 sets, daily range): BP systolic 98–99; BP diastolic 52–73; TEMP 99; O2SAT 96–99
[2024-04-01] MEDS: ONDANSETRON HCL 4 MG/5 ML SOLUTION GT PRN (17:32)
[2024-04-02] VITALS (13 sets, daily range): BP systolic 105–122; BP diastolic 82–94; TEMP 97.9–98.4; O2SAT 96–98
[2024-04-03] VITALS (12 sets, daily range): BP systolic 104–111; BP diastolic 82–96; TEMP 97.9–98.1; O2SAT 98–100
[2024-04-04] VITALS (12 sets, daily range): BP systolic 99–105; BP diastolic 70–86; TEMP 97.5–97.6; O2SAT 97–100
[2024-04-05] VITALS (14 sets, daily range): BP systolic 104–116; BP diastolic 74; TEMP 97.5–98.2; O2SAT 95–100
[2024-04-06] VITALS (13 sets, daily range): BP systolic 100–118; BP diastolic 83; TEMP 98.1–98.2; O2SAT 96–99
[2024-04-07] VITALS (13 sets, daily range): BP systolic 95–104; BP diastolic 71–76; TEMP 97.7–97.9; O2SAT 99–100
[2024-04-08] VITALS (13 sets, daily range): BP systolic 106–110; BP diastolic 75–83; TEMP 97.9; O2SAT 99–100
[2024-04-09] VITALS (13 sets, daily range): BP systolic 102–108; BP diastolic 67–74; TEMP 97.7; O2SAT 98–100
[2024-04-10] VITALS (13 sets, daily range): BP systolic 102–111; BP diastolic 71–78; TEMP 97.7–98.2; O2SAT 98–100
[2024-04-11] VITALS (12 sets, daily range): BP systolic 97–128; BP diastolic 65–88; TEMP 97.7–97.9; O2SAT 98–100
[2024-04-12] VITALS (13 sets, daily range): BP systolic 94–106; BP diastolic 67–73; TEMP 97.5; O2SAT 98–100
[2024-04-13] VITALS (12 sets, daily range): BP systolic 103–105; BP diastolic 72–75; TEMP 97.7–97.9; O2SAT 96–100
[2024-04-14] VITALS (14 sets, daily range): BP systolic 105–123; BP diastolic 73–88; TEMP 97.7–98.1; O2SAT 97–100
[2024-04-15] VITALS (12 sets, daily range): BP systolic 96–107; BP diastolic 72–73; TEMP 97.5–97.9; O2SAT 98–100
[2024-04-16] VITALS (12 sets, daily range): BP systolic 120–129; BP diastolic 76–86; TEMP 97.7–98; O2SAT 99–100
[2024-04-17] VITALS (13 sets, daily range): BP systolic 107; BP diastolic 75; TEMP 97.7; O2SAT 96–100
[2024-04-18] VITALS (13 sets, daily range): BP systolic 103–117; BP diastolic 73–77; TEMP 97.5–98.2; O2SAT 98–100
[2024-04-19] VITALS (11 sets, daily range): O2SAT 98–100
[2024-04-20] VITALS (12 sets, daily range): BP systolic 104; BP diastolic 71; TEMP 98.2; O2SAT 98–100
[2024-04-21] VITALS (13 sets, daily range): BP systolic 99–106; BP diastolic 78; TEMP 97.5–97.8; O2SAT 99–100
[2024-04-22] VITALS (14 sets, daily range): BP systolic 94–99; BP diastolic 64–66; TEMP 97.5–97.7; O2SAT 97–100
[2024-04-23] VITALS (12 sets, daily range): BP systolic 101–105; BP diastolic 60–85; TEMP 97.9–98; O2SAT 98–100
[2024-04-24] VITALS (14 sets, daily range): BP systolic 95–96; BP diastolic 62–66; TEMP 98.2–98.3; O2SAT 96–100
[2024-04-25] VITALS (12 sets, daily range): BP systolic 103–119; BP diastolic 69–90; TEMP 98.1–98.4; O2SAT 99–100
[2024-04-26] VITALS (15 sets, daily range): BP systolic 98–101; BP diastolic 63–74; TEMP 97.5–97.9; O2SAT 98–100
[2024-04-27] VITALS (13 sets, daily range): BP systolic 98–118; BP diastolic 65–81; TEMP 97.7–98.2; O2SAT 99–100
[2024-04-28] VITALS (11 sets, daily range): BP systolic 95–137; BP diastolic 62–93; TEMP 97.9–98.1; O2SAT 97–100
[2024-04-29] VITALS (13 sets, daily range): BP systolic 96–116; BP diastolic 64–95; TEMP 97.5–98.6; O2SAT 98–100
[2024-04-29] MEDS: PHENOBARBITAL 60 MG TABLET GT SCH (17:43)
[2024-04-30] VITALS (13 sets, daily range): BP systolic 104–118; BP diastolic 76–89; TEMP 98.2–98.3; O2SAT 98–100
[2024-04-30] MEDS: PHENOBARBITAL 60 MG TABLET GT SCH (08:30)
[2024-05-01] VITALS (12 sets, daily range): BP systolic 98–112; BP diastolic 70–89; TEMP 98–98.2; O2SAT 99–100
[2024-05-02] VITALS (14 sets, daily range): BP systolic 98–104; BP diastolic 67–71; TEMP 98–98.4; O2SAT 98–100
[2024-05-03] VITALS (13 sets, daily range): BP systolic 98–106; BP diastolic 65–74; TEMP 98.5–98.6; O2SAT 95–100
[2024-05-04] VITALS (12 sets, daily range): BP systolic 101–106; BP diastolic 75; TEMP 97.9–98.6; O2SAT 99–100
[2024-05-04] MEDS: ONDANSETRON HCL 4 MG/5 ML SOLUTION GT PRN (21:24)
[2024-05-05] VITALS (13 sets, daily range): BP systolic 103–104; BP diastolic 74–77; TEMP 98.1–98.6; O2SAT 96–100
[2024-05-05] MEDS: PROPRANOLOL HCL 10 MG TABLET GT SCH (08:45)
[2024-05-06] VITALS (13 sets, daily range): BP systolic 105–106; BP diastolic 67–87; TEMP 98.4–98.6; O2SAT 96–100
[2024-05-07] VITALS (13 sets, daily range): BP systolic 106–116; BP diastolic 72–84; TEMP 98.1–99.3; O2SAT 97–100
[2024-05-08] VITALS (10 sets, daily range): BP systolic 100–110; BP diastolic 74–87; TEMP 97.7–97.9; O2SAT 97–100
[2024-05-09] VITALS (11 sets, daily range): BP systolic 98–106; BP diastolic 70–81; TEMP 97.6–98.6; O2SAT 97–100
[2024-05-10] VITALS (13 sets, daily range): BP systolic 106–114; BP diastolic 77–89; TEMP 98.1–98.7; O2SAT 80–100
[2024-05-11] VITALS (11 sets, daily range): BP systolic 102–106; BP diastolic 73–86; TEMP 97.9–98.4; O2SAT 97–100
[2024-05-12] VITALS (14 sets, daily range): BP systolic 101–102; BP diastolic 70–76; TEMP 98.1–98.6; O2SAT 98–100
[2024-05-13] VITALS (12 sets, daily range): BP systolic 103–114; BP diastolic 76–78; TEMP 97.5–97.9; O2SAT 98–100
[2024-05-14] VITALS (11 sets, daily range): BP systolic 102; BP diastolic 73; TEMP 98.4; O2SAT 98–100
[2024-05-15] VITALS (14 sets, daily range): BP systolic 111; BP diastolic 82; TEMP 97.9–98.7; O2SAT 97–100
[2024-05-16] VITALS (15 sets, daily range): BP systolic 104–121; BP diastolic 70–89; TEMP 98.3–98.6; O2SAT 98–100
[2024-05-17] VITALS (12 sets, daily range): BP systolic 104–113; BP diastolic 70; TEMP 97.7–98.4; O2SAT 98–100
[2024-05-18] VITALS (12 sets, daily range): BP systolic 104–105; BP diastolic 74–77; TEMP 97.9–98.8; O2SAT 99–100
[2024-05-19] VITALS (14 sets, daily range): BP systolic 108–115; BP diastolic 77–83; TEMP 98–98.1; O2SAT 97–100
[2024-05-20] VITALS (14 sets, daily range): BP systolic 107–112; BP diastolic 75–77; TEMP 98.1; O2SAT 96–100
[2024-05-21] VITALS (11 sets, daily range): BP systolic 99–107; BP diastolic 76–84; TEMP 97.7–98.2; O2SAT 96–100
[2024-05-22] VITALS (12 sets, daily range): BP systolic 114; BP diastolic 83–85; TEMP 98.7–99.1; O2SAT 96–100
[2024-05-23] VITALS (12 sets, daily range): BP systolic 111; BP diastolic 84; TEMP 98.4; O2SAT 94–100
[2024-05-24] VITALS (15 sets, daily range): BP systolic 106–127; BP diastolic 78–80; TEMP 97.7–99.6; O2SAT 98–100
[2024-05-25] VITALS (12 sets, daily range): BP systolic 100–119; BP diastolic 68–81; TEMP 98.1–98.2; O2SAT 98–100
[2024-05-26] VITALS (12 sets, daily range): BP systolic 97–101; BP diastolic 50–69; TEMP 97.9–98.4; O2SAT 97–100
[2024-05-27] VITALS (12 sets, daily range): BP systolic 105–120; BP diastolic 73–77; TEMP 97.7–97.9; O2SAT 99–100
[2024-05-28] VITALS (12 sets, daily range): BP systolic 108–130; BP diastolic 76–85; TEMP 97.2–98.3; O2SAT 96–100
[2024-05-29] VITALS (13 sets, daily range): BP systolic 134–152; BP diastolic 83–98; TEMP 97.9–98; O2SAT 98–100
[2024-05-30] VITALS (11 sets, daily range): BP systolic 118; BP diastolic 81; TEMP 98; O2SAT 98–100
[2024-05-31] VITALS (13 sets, daily range): BP systolic 105–107; BP diastolic 79–80; TEMP 97.7–98.8; O2SAT 98–100
[2024-06-01] VITALS (12 sets, daily range): BP systolic 121–133; BP diastolic 88–93; TEMP 98.4–98.8; O2SAT 98–100
[2024-06-02] VITALS (13 sets, daily range): BP systolic 99–100; BP diastolic 68–70; TEMP 98.1–98.2; O2SAT 98–100
[2024-06-03] VITALS (12 sets, daily range): BP systolic 107–108; BP diastolic 77–87; TEMP 98.1–98.8; O2SAT 98–100
[2024-06-04] VITALS (12 sets, daily range): BP systolic 98–116; BP diastolic 73–83; TEMP 97.8–97.9; O2SAT 99–100
[2024-06-05] VITALS (13 sets, daily range): BP systolic 99–114; BP diastolic 62–90; TEMP 98.1–98.2; O2SAT 98–100
[2024-06-06] VITALS (13 sets, daily range): BP systolic 102–114; BP diastolic 84; TEMP 98.3–98.6; O2SAT 99–100
[2024-06-07] VITALS (12 sets, daily range): BP systolic 96–109; BP diastolic 50–82; TEMP 97.7–98.2; O2SAT 98–100
[2024-06-08] VITALS (13 sets, daily range): BP systolic 105–121; BP diastolic 84–87; TEMP 97.7–98.1; O2SAT 96–100
[2024-06-09] VITALS (13 sets, daily range): BP systolic 104–122; BP diastolic 74–89; TEMP 97.7–97.9; O2SAT 97–100
[2024-06-10] VITALS (13 sets, daily range): BP systolic 103–126; BP diastolic 77–78; TEMP 97.7–98; O2SAT 98–100
[2024-06-11] VITALS (12 sets, daily range): BP systolic 108–113; BP diastolic 75–84; TEMP 97.5–97.6; O2SAT 98–100
[2024-06-12] VITALS (13 sets, daily range): BP systolic 101–105; BP diastolic 79–83; TEMP 97.7–98.6; O2SAT 98–100
[2024-06-13] VITALS (12 sets, daily range): BP systolic 100; BP diastolic 72; TEMP 98; O2SAT 98–100
[2024-06-14] VITALS (14 sets, daily range): BP systolic 102–116; BP diastolic 62–65; TEMP 97.7–98.1; O2SAT 95–100
[2024-06-15] VITALS (13 sets, daily range): BP systolic 111–113; BP diastolic 75–93; TEMP 97.5–97.9; O2SAT 97–100
[2024-06-16] VITALS (14 sets, daily range): BP systolic 93–107; BP diastolic 60–68; TEMP 97.7; O2SAT 97–100
[2024-06-17] VITALS (13 sets, daily range): BP systolic 100–115; BP diastolic 71–81; TEMP 98.1–98.4; O2SAT 97–100
[2024-06-18] VITALS (13 sets, daily range): BP systolic 118; BP diastolic 78; TEMP 98.1; O2SAT 98–100
[2024-06-19] VITALS (11 sets, daily range): BP systolic 104; BP diastolic 81; TEMP 98.4; O2SAT 99–100
[2024-06-20] VITALS (12 sets, daily range): BP systolic 96–116; BP diastolic 77–85; TEMP 97.9–98.6; O2SAT 98–100
[2024-06-21] VITALS (12 sets, daily range): BP systolic 107–116; BP diastolic 59–86; TEMP 97.8–98.2; O2SAT 98–100
[2024-06-22] VITALS (13 sets, daily range): BP systolic 104–111; BP diastolic 71–85; TEMP 98.1–98.2; O2SAT 98–100
[2024-06-23] VITALS (14 sets, daily range): BP systolic 104–111; BP diastolic 75–76; TEMP 97.7–98.2; O2SAT 97–100
[2024-06-24] VITALS (15 sets, daily range): BP systolic 98–108; BP diastolic 63–71; TEMP 97.9–98.4; O2SAT 98–100
[2024-06-25] VITALS (12 sets, daily range): BP systolic 98–108; BP diastolic 64–78; TEMP 97.9–98.2; O2SAT 98–100
[2024-06-26] VITALS (14 sets, daily range): BP systolic 108–114; BP diastolic 76–81; TEMP 97.7–98.6; O2SAT 96–100
[2024-06-27] VITALS (14 sets, daily range): BP systolic 98–107; BP diastolic 72–75; TEMP 97.7–98.1; O2SAT 94–100
[2024-06-28] VITALS (11 sets, daily range): BP systolic 114; BP diastolic 73; TEMP 98.4; O2SAT 97–100
[2024-06-29] VITALS (14 sets, daily range): BP systolic 101–114; BP diastolic 71–88; TEMP 97.2–98.3; O2SAT 98–100
[2024-06-30] VITALS (13 sets, daily range): BP systolic 96–132; BP diastolic 70–82; TEMP 97.2–98.3; O2SAT 94–99
[2024-07-01] VITALS (7 sets, daily range): BP systolic 98–116; BP diastolic 68–80; TEMP 97.6–98.2; O2SAT 98–100
[2024-07-02] VITALS (13 sets, daily range): BP systolic 104–110; BP diastolic 79; TEMP 98.2–98.6; O2SAT 95–100
[2024-07-03] VITALS (13 sets, daily range): BP systolic 106–113; BP diastolic 82–94; TEMP 98.2–99.3; O2SAT 98–100
[2024-07-04] VITALS (13 sets, daily range): BP systolic 103–118; BP diastolic 75–81; TEMP 98–98.2; O2SAT 98–100
[2024-07-05] VITALS (12 sets, daily range): BP systolic 102; BP diastolic 73–85; TEMP 98.4–98.6; O2SAT 98–100
[2024-07-05] MEDS: GUAIFENESIN/D-METHORPHAN HB 5 ML UDC GT PRN (10:16)
[2024-07-06] VITALS (11 sets, daily range): BP systolic 100–103; BP diastolic 70–74; TEMP 97.2–97.9; O2SAT 96–100
[2024-07-07] VITALS (15 sets, daily range): BP systolic 98–108; BP diastolic 72–76; TEMP 97.9–98.6; O2SAT 97–100
[2024-07-08] VITALS (13 sets, daily range): BP systolic 96; BP diastolic 76; TEMP 98.6; O2SAT 97–100
[2024-07-09] VITALS (12 sets, daily range): BP systolic 98; BP diastolic 67; TEMP 97.5; O2SAT 97–100
[2024-07-10] VITALS (11 sets, daily range): BP systolic 96–102; BP diastolic 69–71; TEMP 97.5–97.7; O2SAT 98–100
[2024-07-10] MEDS: chlorproMAZINE HCL 25 MG TABLET GT SCH (11:35)
[2024-07-11] VITALS (14 sets, daily range): BP systolic 95–106; BP diastolic 66–72; TEMP 97.7–98; O2SAT 99–100
[2024-07-11 15:44] LABS: BASOPHILS % (AUTO) 0.5 % (0.0-2.0); EOSINOPHILS # (AUTO) 0.1 K/uL (0.0-0.7); EOSINOPHILS % (AUTO) 2.4 % (0.0-6.0); HEMATOCRIT 40 % (39-51); HEMOGLOBIN 13.3 g/dL (13.5-17.5); LYMPHOCYTES # (AUTO) 1.2 K/uL (0.8-4.8); LYMPHOCYTES % (AUTO) 22.4 % (20.0-44.0); MEAN CORPUSCULAR HEMOGLOBIN 30 PG (26.0-33.0); MEAN CORPUSCULAR HGB CONC 34 g/dl (31.0-36.0); MEAN CORPUSCULAR VOLUME 88 fL (80-96); MONOCYTES # (AUTO) 0.3 K/uL (0.1-1.30); MONOCYTES % (AUTO) 5.6 % (2.0-12.0); NEUTROPHILS # (AUTO) 3.6 K/uL (1.8-8.9); NEUTROPHILS % (AUTO) 69.1 % (43.0-81.0); PLATELET COUNT (AUTO) 331 K/uL (150-450); RED BLOOD CELL COUNT(AUTO) 4.51 MIL/uL (4.5-6.0); RED CELL DISTRIBUTION WIDTH 14.8 % (11.5-15.0); WHITE BLOOD COUNT (AUTO) 5.2 K/uL (4.3-11.0)
[2024-07-11 16:00] LABS: CALCIUM, SERUM 9.2 mg/dL (8.5-10.1); CREATININE 0.6 mg/dL (0.6-1.3); POTASSIUM 4.3 mmol/L (3.5-5.1)
[2024-07-12] VITALS (13 sets, daily range): BP systolic 105–108; BP diastolic 65–72; TEMP 97.7–98.4; O2SAT 99–100
[2024-07-13] VITALS (11 sets, daily range): BP systolic 100–104; BP diastolic 67; TEMP 97.5–97.7; O2SAT 96–100
[2024-07-14] VITALS (12 sets, daily range): BP systolic 103–105; BP diastolic 69–73; TEMP 97.9; O2SAT 99–100
[2024-07-15] VITALS (11 sets, daily range): BP systolic 107–113; BP diastolic 78–79; TEMP 97.5–97.8; O2SAT 98–100
[2024-07-16] VITALS (13 sets, daily range): BP systolic 98–114; BP diastolic 67–82; TEMP 97.9–98; O2SAT 99–100
[2024-07-17] VITALS (13 sets, daily range): BP systolic 104–117; BP diastolic 69–81; TEMP 97.7–97.9; O2SAT 100
[2024-07-18] VITALS (11 sets, daily range): BP systolic 105–106; BP diastolic 67–69; TEMP 98–98.6; O2SAT 99–100
[2024-07-19] VITALS (14 sets, daily range): BP systolic 111–114; BP diastolic 77–78; TEMP 97.9–98.2; O2SAT 95–100
[2024-07-20] VITALS (14 sets, daily range): BP systolic 116–137; BP diastolic 74–84; TEMP 98.2; O2SAT 98–100
[2024-07-21] VITALS (12 sets, daily range): BP systolic 98–106; BP diastolic 63–71; TEMP 98.2; O2SAT 99–100
[2024-07-22] VITALS (12 sets, daily range): BP systolic 100–107; BP diastolic 75–85; TEMP 97.3–97.9; O2SAT 98–100
[2024-07-23] VITALS (12 sets, daily range): BP systolic 99–116; BP diastolic 59–70; TEMP 97.7; O2SAT 98–100
[2024-07-24] VITALS (12 sets, daily range): BP systolic 99–102; BP diastolic 67–75; TEMP 97.7–97.9; O2SAT 99–100
[~2024-07-24] VITALS: Ht 167.6 cm; Wt 70.8 kg
[~2024-07-24 23:59] MED LIST changes: +ACETAMINOPHEN 650 MG/20.3 ML UDC GT PRN; +ALBU2.5V13 IH; +ALBUTEROL FS 2.5 MG/3 ML VIAL.NEB NEB PRN; +BENZONATATE 100 MG CAPSULE PO PRN; +BISA10SU11 RC; +BISACODYL SUPP (10 MG) 10 MG/SUPP.RECT SUPP.RECT RC PRN; +CLON1PAT TD; +CLONIDINE HCL 0.1 MG TABLET GT PRN; +DEXTROSE 50%-WATER 50 ML DISP.SYRIN ONE; +DOCU50LI GT; +GLYCOPYRROLATE 1 MG TABLET GT SCH; +HYDR1SOL TP; +HYDROGEN PEROXIDE 480 ML BOTTLE TP PRN; +IPRATROPIUM NEB FS 0.5 MG/2.5 ML AMPUL.NEB NEB PRN; +LACT-209 GT; +LEVE100S PO; +METOCLOPRAMIDE HCL 10 MG/2 ML VIAL IV SCH; +MORPHINE SULFATE IR 15 MG TABLET GT PRN; +ONDANSETRON HCL/PF 4 MG/2 ML VIAL IVP PRN; +PETR113O TP; +PHEN20EL5 PEG; +PHENOBARBITAL 60 MG TABLET GT SCH; +POLY17PO4 GT; +SENN-261 GT; +ZOLPIDEM TARTRATE 5 MG TABLET GT PRN; +chlorproMAZINE HCL 25 MG TABLET GT PRN; +chlorproMAZINE HCL 25 MG TABLET GT SCH
[2024-07-25] VITALS (13 sets, daily range): BP systolic 98–117; BP diastolic 78; TEMP 97.5–97.9; O2SAT 99–100
[2024-07-25] MEDS: JEVITY 1.5 CAL LIQUID 1,000 ML BOTTLE GT PRN (13:23)
[2024-07-26 01:40] VITALS: O2SAT 100
[2024-07-26 01:55] VITALS: O2SAT 100
== END | disposition still patient (30) | DRG 133 ==
LOC: SA 07-25 → UNDOADMIN 07-25
PROVIDERS: ADMIT Internal Medicine; ATTEND Internal Medicine
DX: J96.10 Chronic respiratory failure, unspecified whether with hypoxia or hypercapnia (principal); R40.3 Persistent vegetative state; G93.1 Anoxic brain damage, not elsewhere classified; R53.2 Functional quadriplegia; G90.89 Other disorders of autonomic nervous system; D63.8 Anemia in other chronic diseases classified elsewhere; Z99.11 Dependence on respirator [ventilator] status; Z93.0 Tracheostomy status; G91.9 Hydrocephalus, unspecified; S06.9XAS Unspecified intracranial injury with loss of consciousness status unknown, sequela; Z93.1 Gastrostomy status; R13.10 Dysphagia, unspecified; V89.2XXS Person injured in unspecified motor-vehicle accident, traffic, sequela; G40.909 Epilepsy, unspecified, not intractable, without status epilepticus; S01.01XD Laceration without foreign body of scalp, subsequent encounter; X58.XXXD Exposure to other specified factors, subsequent encounter; Z74.01 Bed confinement status; G93.89 Other specified disorders of brain; Z74.09 Other reduced mobility
CPT/HCPCS: 31720; 36415; 71045-TC; 74018; 80048-TC; 80053-TC; 80184; 81001; 82962-TC; 85025-TC; 86580-TC; 87040-TC; 92507-TC; 92521; 94003-TC; 94640-TC; 94760-TC; 94761-TC; 94762-TC; 94799-TC; 97110-TC; 97112-TC; 97760-TC; 99082-TC; A4223; A4623; A7526; J1953; J2543; J7030; J7060; J8597; Q0161; Q0162